=== PATIENT | female | born 1960 | race Caucasian/White ===

== ENCOUNTER → 2018-04-10 09:41 | Outpatient (CLI) | payer OTHER, MEDICAID, SELFPAY ==
[2018-04-10 11:18] LABS: Add Manual Diff / Slide Review NO; Basophils Percent Auto 0.8 % (0-2); Eosinophils Percent Auto 7.2 % (2-4); Hematocrit 41.7 % (36-46); Hemoglobin 14.3 g/dL (12.0-16.0); Lymphocytes Percent Auto 32.1 % (25-40); Mean Corpuscular HGB Conc 34.3 % (30-36); Mean Corpuscular Hemoglobin 30.6 PG (26-34); Mean Corpuscular Volume 89.3 fL (80-100); Monocytes Percent Auto 7.3 % (3-14); Neutrophils Absolute Auto 3200 /uL (3000-5900); Neutrophils Percent Auto 52.6 % (50-75); Platelet Count 293 X10^3/uL (150-400); Red Blood Cell Count 4.67 X10^6/uL (4.0-5.2); Red Cell Distribution Width 13.6 % (11.6-14.8); White Blood Cell Count 6.2 X10^3/uL (4.5-11.0)
[2018-04-10 11:33] LABS: Alanine Aminotransferase 43 IU/L (9-52); Albumin 4.5 g/dL (3.5-5.0); Albumin Globulin Ratio 1.6 (1.0-2.8); Alkaline Phosphatase 60 U/L (38-126); Aspartate Aminotransferase 34 IU/L (14-36); BUN Creatinine Ratio 36.7 (6-22); Bilirubin Total 0.4 mg/dL (0.2-1.3); Blood Urea Nitrogen 22 mg/dL (7-17); Calcium 9.3 mg/dL (8.4-10.2); Carbon Dioxide 28 mmol/L (22-32); Chloride 103 mmol/L (98-107); Cholesterol 175 mg/dL (140-199); Estimated Glomerular Filt Rate > 60.0 mL/min (>60); Globulin 2.9 g/dL (1.7-4.1); Glucose 86 mg/dL (70-100); HDL Cholesterol 42 mg/dL (40-60); HEMOLYSIS < 15 (0-50); LDL Cholesterol Calculated 102 mg/dL (<100); Potassium 4.1 mmol/L (3.4-5.1); Sodium 143 mmol/L (137-145); Total Protein 7.4 g/dL (6.3-8.2); Triglycerides 156 mg/dL (35-150)
[2018-04-10 12:46] LABS: TSH w/ Reflex to FT4 3.85 uIU/mL (0.47-4.68)
== END ==
PROVIDERS: PCP Family Medicine; Visit Provider Family Medicine
DX: Z13.220 Encounter for screening for lipoid disorders (principal)
CPT/HCPCS: 36415; 80053; 80061; 84443; 85025

== ENCOUNTER → 2018-04-17 11:04 | Outpatient (CLI) | payer OTHER, MEDICAID, SELFPAY ==
[2018-04-17 12:37] LABS: Free T4, Direct Thyroxine 0.92 ng/dL (0.78-2.19)
[2018-04-25 12:00] LABS: Thyroid Antibodies <1
== END ==
PROVIDERS: PCP Family Medicine; Visit Provider Family Medicine
DX: E03.9 Hypothyroidism, unspecified (principal)
CPT/HCPCS: 36415; 84439

== ENCOUNTER 2018-10-06 19:10 | Emergency (ER) | payer OTHER, MEDICAID, SELFPAY ==
[2018-10-06] VITALS (8 sets, daily range): BP systolic 136–224; BP diastolic 65–115; PULSE 55–70; RESP 10–18; TEMP 36.6; O2SAT 98–99; BMI 22.8
--- NOTE | 2018-10-06 19:37 | ED_ITS ---
HPI - Headache General Chief Complaint: Headache Stated Complaint: FAST HEART BEAT HEADACHE RT SIDE OF HEAD HIGH BLOO Time Seen by Provider: 10/06/18 19:36 Source: patient Mode of arrival: ambulatory Limitations: no limitations History of Present Illness HPI Narrative: Patient is a 57-year-old female here for evaluation of several years of lower extremity tingling and restlessness. She does have a history of fibromyalgia and thought that this was a flare for fibromyalgia. She is also here for a several days/weeks history of neck pain and upper arm pain. Again she that this is a flare of her fibromyalgia. She states over the past 4 days consistently going to bed with it at night waking up with it in the morning chest pressure. She states that today she was generally not feeling very well. She took her blood pressure and it was elevated. She does not have a history of high blood pressure. She states that she was evaluated for this in the past and was given a blood pressure log but has not taken her blood pressure since July. States that her normally her blood pressure is 1 20-140 systolic lead. She also is complaining of a right-sided headache. Does not know what exactly the started. Was not a sudden onset. Has not tried anything for her symptoms prior to arrival. Symptoms not worse with movement or palpation or breathing. Nothing makes it better. Related Data Home Medications Medication Instructions Recorded Confirmed alpha lipoic acid 200 mg capsule 400 mg PO DAILY cap 07/13/18 10/06/18 melatonin 1 mg tablet 2 mg PO BEDTIME PRN tab 08/30/18 10/06/18 Allergies Allergy/AdvReac Type Severity Reaction Status Date / Time No Known Drug Allergies Allergy Verified 08/30/18 15:43 Review of Systems Constitutional Reports fatigue, Denies fever(s), Reports headache(s), Reports malaise and Denies weakness Eyes Denies change in vision and Denies diplopia ENT Ears, Nose, Mouth, and Throat: Denies vertigo, Denies dizziness, Denies dry mouth, Reports headache(s), Denies disequilibrium, Denies sinus pressure and Reports sore throat Cardiovascular Reports chest pain, Denies lightheadedness and Denies dyspnea Respiratory Denies cough, Denies dyspnea and Denies wheezing Gastrointestinal Gastrointestinal: Denies abdominal pain, Denies nausea and Denies vomiting Genitourinary Denies dysuria Musculoskeletal Reports myalgias, Denies arthralgias, Reports stiffness and Reports tingling Integumentary/Breasts Denies lesions and Denies rash Neurologic Denies confusion, Denies vertigo, Denies dizziness, Reports headache(s), Denies focal weakness, Reports restless legs, Reports tingling, Reports paresthesias, Denies disequilibrium and Denies weakness Psychiatric Denies confusion Endocrine Reports fatigue Hematologic/Lymphatic Comments: Not on anticoagulation Allergic/Immunologic Denies wheezing PFSH Medical History Fibromyalgia (Chronic) Breast implant status (Chronic) PTSD (post-traumatic stress disorder) (Chronic) Surgical History No pertinent past surgical history (Acute) Family History Mother Tachycardia DVT (deep venous thrombosis) Varicose veins Social History marital status: Smoking Status: Former smoker Exam Initial Vital Signs Initial Vital Signs: Vital Signs Temperature 97.9 F 10/06/18 19:26 Pulse Rate 60 10/06/18 19:26 Respiratory Rate 18 10/06/18 19:26 Blood Pressure 224/102 H 10/06/18 19:26 Pulse Oximetry 99 10/06/18 19:26 Const General: cooperative, healthy appearing, comfortable, well developed, well groomed and No acute distress Orientation: alert, awake and oriented x3 HENMT Head: normal to inspection, normocephalic and atraumatic Ears: hearing grossly normal bilaterally Nose: external nose normal Mouth: oral mucosae normal Neck Neck: full ROM Lymphatic: No lymphadenopathy Resp Effort & Inspection: normal respiratory effort Auscultation: clear to auscultation bilaterally Cardio Rate: regular rate Rhythm: regular rhythm Pulses: radial pulses present GI Inspection: non-distended Palpation: soft Skin Lesions: no lesions Rashes: no rashes Neuro General: alert, awake and oriented x3 Cranial Nerves: CN's II-XI intact bilaterally Cognition: normal cognition Speech: speech normal Gait: normal gait Motor: muscle tone normal throughout Sensory Exam: no sensory deficits noted Extrem General: normal to inspection and capillary refill normal Psych Appearance: grossly normal and well kempt Scores HEART Score Heart Score history: Slightly Suspicious Heart Score EKG: Normal Heart Score Age: 45-64 years old Heart Score risk factors: No known risk factors Heart Score troponin: < or = to normal limit Heart Score Total: 1 Course Orders Ordered: ED Orders 10/06/18 19:37 EKG-12 Lead Stat 10/06/18 20:07 Basic Metabolic Panel Stat Complete Blood Count AUTO DIFF Stat Troponin I Stat 10/06/18 20:08 XR chest 1V Stat Thyroid Stimulating Hormone Stat Troponin I Stat Discontinued Medications Acetaminophen (Tylenol) 650 mg PO NOW ONE Stop: 10/06/18 20:17 Last Admin: 10/06/18 20:20 Dose: 650 mg Vital Signs - 8 hr 10/06/18 19:26 10/06/18 19:55 10/06/18 20:00 Temperature 97.9 F Pulse Rate 60 70 60 Respiratory Rate 18 14 14 Blood Pressure 224/102 H Blood Pressure [Left Arm] 179/100 H 187/80 H Pulse Oximetry 99 98 99 10/06/18 20:15 10/06/18 20:30 10/06/18 20:45 Temperature Pulse Rate 57 L 61 58 L Respiratory Rate 12 10 L 14 Blood Pressure Blood Pressure [Left Arm] 192/115 H 162/79 H 156/65 H Pulse Oximetry 98 98 10/06/18 21:00 Temperature Pulse Rate 59 L Respiratory Rate 14 Blood Pressure Blood Pressure [Left Arm] 136/87 Pulse Oximetry MDM - Headache Lab Data Attestation: I reviewed the patient's lab results. Result diagrams: 10/06/18 20:15 10/06/18 20:15 Lab Results 10/06/18 10/06/18 10/06/18 Range/Units 20:15 20:15 20:15 WBC 6.5 (4.5-11.0) X10^3/uL RBC 4.37 (4.0-5.2) X10^6/uL Hgb 13.1 (12.0-16.0) g/dL Hct 39.0 (36-46) % MCV 89.2 (80-100) fL MCH 29.9 (26-34) PG MCHC 33.5 (30-36) % RDW 13.1 (11.6-14.8) % Plt Count 412 H (150-400) X10^3/uL Neut % (Auto) 62.8 (50-75) % Lymph % (Auto) 26.8 (25-40) % [place] % (Auto) 7.2 (3-14) % Eos % (Auto) 2.4 (2-4) % Baso % (Auto) 0.8 (0-2) % Neut # (Auto) 4100 (6156-9453) /uL Sodium 146 H (137-145) mmol/L Potassium 3.9 (3.4-5.1) mmol/L Chloride 108 H (98-107) mmol/L Carbon Dioxide 25 (22-32) mmol/L BUN 17 (7-17) mg/dL Creatinine 0.50 L (0.52-1.04) mg/dL Estimated GFR > 60.0 (>60) mL/min BUN/Creatinine Ratio 34.0 H (6-22) Glucose 98 (70-100) mg/dL Calcium 9.4 (8.4-10.2) mg/dL Troponin I < 0.012 (0.01-0.034) ng/mL TSH 0.26 L (0.47-4.68) uIU/mL Imaging Data Chest x-ray: Radiologist's impression: PROCEDURE: XR CHEST 1V INDICATIONS: chest pain TECHNIQUE: One view of the chest was acquired. COMPARISON: None. FINDINGS: Surgical changes and devices: None. Lungs and pleura: No pleural effusions or pneumothorax. Lungs are clear. Mediastinum: Mediastinal contours appear normal. Heart size is normal. Bones and chest wall: No suspicious bony lesions. Overlying soft tissues appear unremarkable. IMPRESSION: No acute cardiopulmonary findings. Dictated by: Judith Cobian M.D. on 10/06/2018 at 20:30 Approved by: Judith Cobian M.D. on 10/06/2018 at 20:31 ECG Data Attestation: I personally reviewed and interpreted this ECG as follows: Prior ECG tracings: not available for review Interpretation: Sinus rhythm Ventricular rate is 66 Normal QRS Normal QTC Normal axis No ST T wave changes MDM Narrative Medical decision making narrative: Patient presents with her symptoms that have been going on for least 4 days. She was hypertensive upon arrival. Review of her home blood pressure measurements do show that she appears to be baseline in the 120s to 140 systolic. Patient's blood pressure did decrease to modestly here in the emergency department. No medications were given other than Tylenol. She states that her headache is much better. Patient's creatinine is unremarkable. No ischemic changes on the EKG. Troponin is negative greater than 6 hr after the onset of the symptoms. Has a normal neurologic exam. Doubt CVA. Patient clinically not in heart failure. I have no end-organ dysfunction findings on my workup today. Her TSH was low which is somewhat suspicious for hyperthyroidism. This could be the cause of many of her symptoms today. She states she has never been told that she has had thyroid problems. Her heart score is 1. Will hold on further workup today. I feel that admission for urgent chest pain workup is not needed. No long discussion with her and her regarding blood pressure and how to take it at home. We did discuss thyroid. She is going to contact her primary care doctor for a follow-up. She was given return precautions. She expressed understanding and agreement with plan. Discharge Plan Departure Patient Disposition: Home Clinical Impression: Headache, Hypertension Instructions: Hyperthyroidism, Essential Hypertension Activity Restrictions/Additional Instructions: I included information about hyperthyroidism in your discharge paperwork. I did not give the this diagnosis today however I wanted you to have information so that you could review it. You do need to follow-up with your primary care doctor for further workup. I would continue to take your blood pressure at home like we discussed. Return to the emergency department for any new or worsening symptoms Prescriptions: No Action alpha lipoic acid 200 mg capsule 400 mg PO DAILY RF: 0 melatonin 1 mg tablet 2 mg PO BEDTIME PRN (Reason: Insomnia) RF: 0
--- NOTE | 2018-10-06 20:08 | DI.RAD.S_ITS ---
PROCEDURE: XR CHEST 1V INDICATIONS: chest pain TECHNIQUE: One view of the chest was acquired. COMPARISON: None. FINDINGS: Surgical changes and devices: None. Lungs and pleura: No pleural effusions or pneumothorax. Lungs are clear. Mediastinum: Mediastinal contours appear normal. Heart size is normal. Bones and chest wall: No suspicious bony lesions. Overlying soft tissues appear unremarkable. IMPRESSION: No acute cardiopulmonary findings. Dictated by: Judith Cobian M.D. on 10/06/2018 at 20:30 Approved by: Judith Cobian M.D. on 10/06/2018 at 20:31
[2018-10-06] MEDS: ACETAMINOPHEN 325 MG TABLET 650 MG PO (20:20)
[2018-10-06 20:24] LABS: Add Manual Diff / Slide Review NO; Basophils Percent Auto 0.8 % (0-2); Eosinophils Percent Auto 2.4 % (2-4); Hemoglobin 13.1 g/dL (12.0-16.0); Lymphocytes Percent Auto 26.8 % (25-40); Mean Corpuscular HGB Conc 33.5 % (30-36); Mean Corpuscular Hemoglobin 29.9 PG (26-34); Mean Corpuscular Volume 89.2 fL (80-100); Monocytes Percent Auto 7.2 % (3-14); Neutrophils Absolute Auto 4100 /uL (3000-5900); Neutrophils Percent Auto 62.8 % (50-75); Platelet Count 412 X10^3/uL (150-400); Red Blood Cell Count 4.37 X10^6/uL (4.0-5.2); Red Cell Distribution Width 13.1 % (11.6-14.8); White Blood Cell Count 6.5 X10^3/uL (4.5-11.0)
[2018-10-06 20:35] LABS: Blood Urea Nitrogen 17 mg/dL (7-17); Calcium 9.4 mg/dL (8.4-10.2); Carbon Dioxide 25 mmol/L (22-32); Chloride 108 mmol/L (98-107); Estimated Glomerular Filt Rate > 60.0 mL/min (>60); Glucose 98 mg/dL (70-100); HEMOLYSIS < 15 (0-50); Potassium 3.9 mmol/L (3.4-5.1); Sodium 146 mmol/L (137-145)
[2018-10-06 20:47] LABS: Troponin I < 0.012 ng/mL (0.01-0.034)
[2018-10-06 21:17] LABS: Thyroid Stimulating Hormone 0.26 uIU/mL (0.47-4.68)
== END 2018-10-06 22:09 | disposition home or self-care (01) ==
PROVIDERS: Emergency Provider Emergency Medicine; PCP Family Medicine
DX: I10 Essential (primary) hypertension (principal); R51 Headache
CPT/HCPCS: 36591; 71045; 80048; 84443; 84484; 85025; 93005; 93010; 99283; 99285

== ENCOUNTER → 2018-10-18 17:01 | Outpatient (CLI) | payer OTHER, MEDICAID, SELFPAY ==
[2018-10-18 18:05] LABS: Free T3, Triiodothyronine Free 3.19 pg/mL (2.77-5.27); Free T4, Direct Thyroxine 0.88 ng/dL (0.78-2.19)
[2018-10-18 18:18] LABS: Thyroid Stimulating Hormone 0.08 uIU/mL (0.47-4.68)
[2018-10-20 13:56] LABS: Thyroid Peroxidase Antibodies 6 IU/mL (< 9)
[2018-10-20 15:43] LABS: Triiodothyronine T3 Total 91 ng/dL (76-181)
[2018-10-23 10:03] LABS: Triiodothyronine T3 Reverse 16 ng/dL (8-25)
== END ==
PROVIDERS: PCP Family Medicine; Visit Provider Family Medicine
DX: E05.90 Thyrotoxicosis, unspecified without thyrotoxic crisis or storm (principal); M79.7 Fibromyalgia
CPT/HCPCS: 36415; 84439; 84443; 84480; 84481; 84482; 86376

== ENCOUNTER → 2018-11-01 12:09 | Outpatient (CLI) | payer OTHER, MEDICAID, SELFPAY ==
[2018-11-01 13:46] LABS: Prolactin 5.1 ng/mL (3.0-18.6)
[2018-11-06 16:43] LABS: Arsenic 3 mcg/L (< 23); Lead, Blood 2 mcg/dL (< 5)
[2018-11-08 11:53] LABS: Mercury, Blood 3
== END ==
PROVIDERS: PCP Family Medicine; Visit Provider Family Medicine
DX: E03.9 Hypothyroidism, unspecified (principal); Z98.82 Breast implant status; R20.0 Anesthesia of skin; R20.2 Paresthesia of skin
CPT/HCPCS: 36415; 83825; 84146

== ENCOUNTER → 2018-11-08 12:15 | Outpatient (CLI) | payer OTHER, MEDICAID, SELFPAY ==
[2018-11-08 14:16] LABS: Thyroid Stimulating Hormone 1.51 uIU/mL (0.47-4.68)
== END ==
PROVIDERS: PCP Family Medicine; Visit Provider Family Medicine
DX: E03.9 Hypothyroidism, unspecified (principal)
CPT/HCPCS: 36415; 84443

== ENCOUNTER → 2018-11-10 16:35 | Outpatient (CLI) | payer OTHER, MEDICAID, SELFPAY ==
[2018-11-10 18:24] LABS: Vitamin B12 > 1000 pg/mL (239-931)
[2018-11-12 14:10] LABS: RPR Screen Nonreactive (Nonreactive)
[2018-11-15 21:30] LABS: Methylmalonic Acid 137 nmol/L (87-318)
== END ==
PROVIDERS: PCP Family Medicine; Visit Provider Family Medicine
DX: R20.9 Unspecified disturbances of skin sensation (principal)
CPT/HCPCS: 36415; 82607; 83090; 83921; 86592

== ENCOUNTER → 2018-12-09 12:29 | Outpatient (CLI) | payer OTHER, MEDICAID, SELFPAY ==
[2018-12-09 13:04] LABS: BUN Creatinine Ratio 26.3 (6-22); Blood Urea Nitrogen 21 mg/dL (7-17); Calcium 9.7 mg/dL (8.4-10.2); Carbon Dioxide 31 mmol/L (22-32); Chloride 101 mmol/L (98-107); Estimated Glomerular Filt Rate > 60.0 mL/min (>60); Glucose 92 mg/dL (70-100); HEMOLYSIS < 15 (0-50); Magnesium 2.1 mg/dL (1.6-2.3); Potassium 4.1 mmol/L (3.4-5.1); Sodium 141 mmol/L (137-145)
== END ==
PROVIDERS: PCP Family Medicine; Visit Provider Family Medicine
DX: R25.2 Cramp and spasm (principal)
CPT/HCPCS: 36415; 80048; 83735

== ENCOUNTER → 2018-12-15 13:24 | Outpatient (CLI) | payer OTHER, MEDICAID, SELFPAY ==
[2018-12-15 14:11] LABS: C-Reactive Protein Quant < 0.5 mg/dL (<1.0); Rheumatoid Factor < 8.6 IU/mL (<12.0)
[2018-12-19 11:51] LABS: CCP Antibody (IgG) < 16 Units (< 20)
[2018-12-20 16:18] LABS: ANA Screen NEGATIVE (Negative); DNA Antibody Crithidia IFA NEGATIVE (Negative); Rheumatoid Factor <14 IU/mL; Sjogren Antiboday SS-A <1.0 NEG AI (<1.0 NEGATIVE); Sjogren Antiboday SS-B <1.0 NEG AI (<1.0 NEGATIVE); Sm Antibody <1.0 NEG AI (<1.0 NEGATIVE); Sm/RNP Antibody <1.0 NEG AI (<1.0 NEGATIVE)
== END ==
PROVIDERS: PCP Family Medicine; Visit Provider Family Medicine
DX: R20.2 Paresthesia of skin (principal); R20.9 Unspecified disturbances of skin sensation
CPT/HCPCS: 36415; 82728; 83516; 86038; 86140; 86430

== ENCOUNTER → 2018-12-20 09:49 | Outpatient (CLI) | payer OTHER, MEDICAID, SELFPAY ==
--- NOTE | 2018-12-20 09:50 | DI.MRI.S_ITS ---
PROCEDURE: MR CERVICAL SPINE WO CON INDICATIONS: paresthesia, neck pain TECHNIQUE: Noncontrast sagittal T1 spin echo and T2 fast spin echo, sagittal STIR, foraminal oblique sagittal T2 fast spin echo, and axial gradient echo or T2 fast spin echo through the cervical spine. COMPARISON: None. FINDINGS: Image quality: Excellent. Alignment and Curvature: Trace retrolisthesis of C5 on C6. Bone Marrow: Degenerative endplate signal changes and spurring. Spinal Cord: Visualized spinal cord has normal size and signal. No cerebellar tonsillar herniation. Paraspinous Soft Tissues: No paravertebral masses. Prevertebral soft tissues are normal in thickness. C2-C3: Minimal bilateral foraminal narrowing. No central canal stenosis. C3-C4: Bilateral uncovertebral arthropathy and posterior intervening disc osteophyte complex, and bilateral facet disease. No central canal stenosis. No left foraminal narrowing. Mild right foraminal stenosis. C4-C5: Bilateral uncovertebral arthropathy and posterior intervening disc osteophyte complex, and mild bilateral facet disease. No central canal stenosis. Mild bilateral foraminal stenoses. C5-C6: Bilateral uncovertebral arthropathy and posterior intervening disc osteophyte complex, and facet arthropathy. No definite canal stenosis. Severe right foraminal narrowing. Mild left foraminal stenosis. C6-C7: No central canal narrowing. No foraminal stenosis. C7-T1: Normal appearance. IMPRESSION: Multilevel cervical spondylosis, diffuse bilateral facet arthropathy and trace retrolisthesis of C5 on C6. No high-grade canal stenosis. Severe right C5-6 foraminal stenosis. Mild bilateral foraminal narrowing at C4-C5 Dictated by: Dustin Ríos M.D. on 12/20/2018 at 12:34 Approved by: Dustin Ríos M.D. on 12/20/2018 at 12:39
== END ==
PROVIDERS: PCP Family Medicine; Visit Provider Family Medicine
DX: R20.2 Paresthesia of skin (principal); M54.2 Cervicalgia; M47.812 Spondylosis without myelopathy or radiculopathy, cervical region; M48.02 Spinal stenosis, cervical region; R53.1 Weakness
CPT/HCPCS: 72141

== ENCOUNTER → 2019-01-11 17:38 | Outpatient (CLI) | payer OTHER, MEDICAID, SELFPAY ==
[2019-01-11 19:04] LABS: Free T3, Triiodothyronine Free 3.33 pg/mL (2.77-5.27); Free T4, Direct Thyroxine 0.88 ng/dL (0.78-2.19)
[2019-01-11 19:17] LABS: Thyroid Stimulating Hormone 2.99 uIU/mL (0.47-4.68)
== END ==
PROVIDERS: PCP Family Medicine; Visit Provider Family Medicine
DX: E03.9 Hypothyroidism, unspecified (principal)
CPT/HCPCS: 36415; 84439; 84443; 84481

== ENCOUNTER → 2019-02-23 13:41 | Outpatient (CLI) | payer OTHER, SELFPAY ==
--- NOTE | 2019-02-23 | DI.MG.S_ITS ---
BILATERAL DIGITAL SCREENING MAMMOGRAM 3D/2D WITH CAD WITH AUGMENTATION: 02/23/2019 CLINICAL: Routine screening. Family history of breast cancer. Comparison is made to exams dated: 02/02/2018 mammogram, 11/23/2016 mammogram, and 10/06/2015 mammogram - [facility]. The tissue of both breasts is heterogeneously dense. This may lower the sensitivity of mammography. Current study was also evaluated with a Computer Aided Detection (CAD) system. Bilateral breast implants are intact. No significant masses, calcifications, or other findings are seen in either breast. There has been no significant interval change. IMPRESSION: NEGATIVE There is no mammographic evidence of malignancy. A 1 year screening mammogram is recommended. This exam was interpreted at Station ID: [id number]. NOTE: For mammograms, a report in lay terms will be sent to the patient. Approximately 15% of breast malignancies will not be visualized mammographically. In the management of a palpable breast mass, a negative mammogram must not discourage biopsy of a clinically suspicious lesion. Electronically Signed By: Paolo motley/ricco:02/23/2019 17:59:16 letter sent: Normal Exam ACR BI-RADS Category 1: Negative [id number]
== END ==
PROVIDERS: PCP Family Medicine; Visit Provider Family Medicine
DX: Z12.31 Encounter for screening mammogram for malignant neoplasm of breast (principal); Z80.3 Family history of malignant neoplasm of breast
CPT/HCPCS: 77063; 77067

== ENCOUNTER → 2019-03-08 12:56 | Outpatient (CLI) | payer OTHER, SELFPAY ==
--- NOTE | 2019-03-08 14:15 | DI.MRI.S_ITS ---
PROCEDURE: MR HEAD/BRAIN WO CON INDICATIONS: craniofacial pain TECHNIQUE: Non-contrast axial T1 spin echo, axial T2 fast spin echo, sagittal and axial FLAIR, coronal T2 fast spin echo, axial gradient echo, axial diffusion and ADC through the brain. COMPARISON: None. FINDINGS: Image quality: Excellent. CSF spaces: Ventricles appear symmetric in size and shape. Basal cisterns are patent. No extra-axial fluid collections. Brain: In this patient with this given history, scrutiny is given to the trigeminal nerves and Meckel's caves. To the limits of this standard protocol study performed without contrast, no abnormalities can be seen within these regions. No intracranial bleeds or mass effects. There is mild cerebral volume loss. There are mild periventricular and deep white matter chronic small vessel ischemic changes. Brainstem appears normal. Diffusion-weighted images show no acute ischemic insults. No chronic ischemic insults. Normal intravascular flow voids are present. Skull and face: Calvarial bone marrow is normal in signal. Orbits are normal. Sinuses: Sinuses and mastoids are clear. IMPRESSION: No imaging explanation is found for this patient's presenting symptoms. Mild brain parenchymal volume loss and chronic small vessel ischemic change. Dictated by: Robert Vogel M.D. on 03/08/2019 at 13:33 Approved by: Robert Vogel M.D. on 03/08/2019 at 13:35
== END ==
PROVIDERS: PCP Family Medicine; Visit Provider Family Medicine
DX: R51 Headache (principal)
CPT/HCPCS: 70551

== ENCOUNTER → 2019-04-04 14:05 | Outpatient (CLI) | payer OTHER, SELFPAY ==
[2019-04-04 15:47] LABS: Add Manual Diff / Slide Review NO; Basophils Absolute Auto 0 /uL (0-100); Basophils Percent Auto 0.9 % (0-2); Eosinophils Absolute Auto 100 /uL (0-450); Eosinophils Percent Auto 1.9 % (2-4); Hematocrit 39.3 % (36-46); Lymphocytes Absolute Auto 1500 /uL (1100-4500); Lymphocytes Percent Auto 31.8 % (25-40); Mean Corpuscular HGB Conc 33.1 % (30-36); Mean Corpuscular Hemoglobin 28.8 PG (26-34); Monocytes Absolute Auto 400 /uL (0-900); Monocytes Percent Auto 8.6 % (3-14); Neutrophils Absolute Auto 2800 /uL (1500-7000); Neutrophils Percent Auto 56.8 % (50-75); Platelet Count 535 X10^3/uL (150-400); Red Blood Cell Count 4.51 X10^6/uL (4.0-5.2); Red Cell Distribution Width 13.7 % (11.6-14.8); White Blood Cell Count 4.9 X10^3/uL (4.5-11.0)
[2019-04-04 16:08] LABS: Erythrocyte Sedimentation Rate 23 MM/HR (0-20)
[2019-04-04 17:10] LABS: Alanine Aminotransferase 69 IU/L (9-52); Albumin 4.7 g/dL (3.5-5.0); Albumin Globulin Ratio 1.8 (1.0-2.8); Alkaline Phosphatase 107 U/L (38-126); Aspartate Aminotransferase 35 IU/L (14-36); BUN Creatinine Ratio 23.3 (6-22); Bilirubin Total 0.3 mg/dL (0.2-1.3); Blood Urea Nitrogen 14 mg/dL (7-17); C-Reactive Protein Quant 0.6 mg/dL (<1.0); Calcium 10.1 mg/dL (8.4-10.2); Carbon Dioxide 31 mmol/L (22-32); Chloride 102 mmol/L (98-107); Estimated Glomerular Filt Rate > 60.0 mL/min (>60); Globulin 2.6 g/dL (1.7-4.1); Glucose 87 mg/dL (80-110); HEMOLYSIS < 15 (0-50); Potassium 4.6 mmol/L (3.4-5.1); Sodium 142 mmol/L (137-145); Total Protein 7.3 g/dL (6.3-8.2)
[2019-04-04 17:26] LABS: Vitamin D 25 Hydroxy (D3) 41.9 ng/mL (30.0-100.0)
[2019-04-04 17:39] LABS: TSH w/ Reflex to FT4 2.13 uIU/mL (0.47-4.68)
[2019-04-04 17:56] LABS: Vitamin B12 844 pg/mL (239-931)
== END ==
PROVIDERS: PCP Family Medicine; Visit Provider Family Medicine
DX: R51 Headache (principal); L29.9 Pruritus, unspecified; M79.2 Neuralgia and neuritis, unspecified; M79.7 Fibromyalgia
CPT/HCPCS: 36415; 80053; 82306; 82607; 84443; 85025; 85651; 86140

== ENCOUNTER → 2019-04-09 10:34 | Outpatient (CLI) | payer OTHER, SELFPAY ==
--- NOTE | 2019-04-09 10:35 | DI.US.S_ITS ---
PROCEDURE: US PELVIC COMPLETE INDICATIONS: PMB TECHNIQUE: Real-time scanning was performed of the pelvic organs, with image documentation. Additional endovaginal scanning was necessary due to incomplete visualization of the adnexal and endometrial structures by transabdominal scanning. COMPARISON: None. FINDINGS: Transabdominal scanning: Limited scanning through the kidneys shows no hydronephrosis. No pathologic free abdominal or pelvic fluid. Endovaginal scanning: Uterus: Uterus is normal in size at 2.8 x 4.1 x 6.3 cm. The endometrium measures 2.5 mm in combined thickness. Several punctate calcifications are incidentally noted within the endometrial lining. There is a 1.3 x 1.0 x 1.1 cm small right anterior centrum mural fibroid, requiring no followup. Ovaries: Right ovary measures 3.1 x 1.8 x 1.9 cm containing 2 simple cysts the largest of which measures up to 1.7 cm. The left ovary measures 2.9 x 1.2 x 1.5 cm. IMPRESSION: An endometrial mass lesion is not seen, source of this menopausal bleeding is not identified. The patient reportedly is postmenopausal 12 years. No ovarian mass is seen. Note is made of 2 small right ovarian cyst the largest of which measures 1.7 cm, and each appears simple in character. If unexplained postmenopausal bleeding persists endometrial biopsy may be warranted regardless the absence of an identifiable mass by ultrasound. Dictated by: Everette Hogan M.D. on 04/09/2019 at 16:04 Approved by: Everette Hogan M.D. on 04/09/2019 at 16:06
== END ==
PROVIDERS: PCP Family Medicine; Visit Provider Family Medicine
DX: N95.0 Postmenopausal bleeding (principal); N83.201 Unspecified ovarian cyst, right side
CPT/HCPCS: 76830; 76856

== ENCOUNTER → 2019-04-24 12:48 | Outpatient (CLI) | payer OTHER, SELFPAY ==
--- NOTE | 2019-04-24 12:50 | DI.MRI.S_ITS ---
PROCEDURE: MR LUMBAR SPINE WO CON INDICATIONS: sacral pain TECHNIQUE: Noncontrast sagittal T1 spin echo and T2 fast echo, sagittal STIR, axial T1 and T2 fast spin echo through the lumbar spine. In cases with scoliosis, additional coronal T2 fast spin echo may be performed. COMPARISON: [facility], , L-SPINE 2-3 VIEWS, 05/23/2013, 16:25. FINDINGS: Image quality: Excellent. Alignment and Curvature: 5 lumbar-type vertebral bodies by plain film. There is normal bony alignment. Bone Marrow: Marrow is of normal overall signal. No acute vertebral body compression fractures. Spinal Cord: Conus medullaris terminates at the mid L2 level. Visualized cord demonstrates normal signal and size. Paraspinous Soft Tissues: No paravertebral masses. L1-L2: Mild disc desiccation. Mild facet and ligamentum flavum hypertrophy. Mild canal stenosis. No foraminal stenosis. L2-L3: Mild facet and ligamentum flavum hypertrophy. Mild canal stenosis. No foraminal stenosis. L3-L4: Mild disc desiccation and diffuse disc bulge. Mild facet and ligament flavum hypertrophy. Mild canal stenosis. No foraminal stenosis. L4-L5: Mild disc desiccation. Mild diffuse disc bulge. Mild facet and ligamentum flavum hypertrophy. Mild canal stenosis. Mild foraminal stenosis bilaterally. L5-S1: Normal appearance. IMPRESSION: Multilevel degenerative disc and facet disease, as well ligamentum flavum hypertrophy, causing mild canal and foraminal stenoses. No neural impingement. Dictated by: Bella Eller M.D. on 04/24/2019 at 15:14 Approved by: Bella Eller M.D. on 04/24/2019 at 15:16
--- NOTE | 2019-04-24 12:50 | DI.MRI.S_ITS ---
PROCEDURE: MR THORACIC SPINE WO CON INDICATIONS: throacic pain TECHNIQUE: Noncontrast sagittal T1 spine echo and T2 fast spin echo, sagittal STIR, axial T1 and T2 fast spin echo through the thoracic spine. COMPARISON: None. FINDINGS: Image quality: Excellent. Alignment and Curvature: There is moderate diffuse thoracic kyphosis, and otherwise normal bony alignment. Bone Marrow: Marrow is of normal overall signal. No acute vertebral body compression fractures. Spinal Cord: Visualized spinal cord is normal in size and signal. Paraspinous Soft Tissues: No paravertebral masses. Disc space levels: Multilevel disc desiccation is present. At T6-T7, there is a left paracentral protrusion, causing minimal canal stenosis, and mild cord flattening. At T9-T10, there is a small right paracentral protrusion, causing minimal canal stenosis and minimal right cord flattening. At T10-T11, there is a small broad-based right paracentral protrusion, causing minimal canal stenosis and minimal cord flattening. IMPRESSION: 1. Diffuse thoracic kyphosis with superimposed disc disease, causing minimal canal stenosis, and minimal cord flattening at T6-T7, T9-T10, and T10-T11. Dictated by: Bella Eller M.D. on 04/24/2019 at 15:17 Approved by: Bella Eller M.D. on 04/24/2019 at 15:20
== END ==
PROVIDERS: PCP Family Medicine; Visit Provider Family Medicine
DX: M53.3 Sacrococcygeal disorders, not elsewhere classified (principal); M51.36 Other intervertebral disc degeneration, lumbar region; M48.061 Spinal stenosis, lumbar region without neurogenic claudication; M40.294 Other kyphosis, thoracic region; M51.24 Other intervertebral disc displacement, thoracic region
CPT/HCPCS: 72146; 72148

== ENCOUNTER 2019-06-04 12:05 | Day surgery (SDC) | payer OTHER, SELFPAY ==
[2019-05-24 07:45] VITALS: BMI 22.3
[2019-06-04] VITALS (9 sets, daily range): BP systolic 108–153; BP diastolic 57–86; PULSE 48–72; RESP 8–16; TEMP 36–36.9; O2SAT 95–100; BMI 21.2
--- NOTE | 2019-06-04 | PATH_ITS ---
[facility] Accession Number: [id number] . 01 Material submitted: . PART A: cervix - CERVICAL CONE (OPEN AT 12 O'CLOCK) PART B: endocervix - ENDOCERVICAL CURETTINGS PART C: endometrium - ENDOMETRIAL CURETTINGS . 02 Diagnosis: A. 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 Please see comment. . B. Endocervical, Curettage: Superficial fragments of [id number]. . C. Endometrium, Curettings: Superficial fragments of [id number]. [facility]06/07/2019 . 02 Comment: A. There are two foci suspicious for invasive adenocarcinoma in two consecutive blocks designated 6-9 o'clock and 9-12 o'clock which abut endocervical margin. The distance of these suspicious foci to the base of the adjacent glandular epithelum from which it appears to originate is less than 3 mm. The in-situ adenocarcinoma extends to endocervical margin three of four quadrants. Ectocervical margin is uninvolved. No lymphovascular invasion is identified. Squamous intraepithelial neoplasia is not identified. . As part of routine quality control engineer, this case was also reviewed by Dr. Rivera and Dr. Hardin, who agree with the diagnosis. Dr. Ahn gave preliminary results to Ankush in Dr. Marte' office on 06/07/19. . 02 Electronically signed: . Amanda Ahn MD, Pathologist NPI- [id number] . 01 Gross description: . A. Received in formalin, labeled with the patient's name and cervical cone (open at 12 o'clock), is a 2.4 cm in length by 1.4 cm in diameter cervical cone which is disrupted into two pieces. Due to the specimen being disrupted, orientation is presumed based upon gross features. The ectocervical mucosa is not definitively identified. The endocervical mucosa is mota-brown and granular. The endocervical margin is inked orange, and the ectocervical and stromal margins are inked blue. The specimen is radially sectioned and entirely submitted as follows: A1-A2 - 12 o'clock to 3 o'clock; A3-A4 - 3 o'clock to 6 o'clock; A5 - 6 o'clock to 9 o'clock; A6 - 9 o'clock to 12 o'clock. B. Received in formalin, labeled with the patient's name and endocervical curettings are multiple minute mota-brown soft tissue fragments measuring 0.4 x 0.2 x 0.1 cm in aggregate. The specimen is entirely submitted in one cassette. C. Received in formalin, labeled with the patient's name and endometrial curettings, are multiple red-brown soft tissue fragments measuring 1.1 x 0.4 x 0.2 cm in aggregate. The specimen is entirely submitted in one cassette. (LORA:[id number]) /MRV . 02 Pathologist provided ICD-10: D06.0 . 02 CPT . 480249, [id number], [id number] Performed at: 01 [facility] [address] [id number] MD Andrea Phan MD Phone: [phone] Performed at: 02 [facility] [address] [place] [id number] MD Amanda Ahn MD Phone: [phone]
[2019-06-04] MEDS: LACTATED RINGERS 1,000 ML 100 ML IV (12:22)
--- NOTE | 2019-06-04 12:41 | PM.PREOP ---
Pre-operative Note Interval Note History & Physical reviewed/Exam performed by Physician: Yes Changes to H&P: No ASA Class (for procedural sedation): I
[2019-06-04] MEDS: CEFOTETAN 2 GM/50 ML PIGGYBACK IV (13:00)
--- NOTE | 2019-06-04 13:17 | SUR.OPER ---
Lithotomy on padded OR bed, head on pillow, arms secured on padded arm boards at <90 degrees abduction. Legs secured in padded yellow fins stirrups.
[2019-06-04] MEDS: BUPIVACAINE 0.5% W/ EPI (PF) VIAL 30 ML INJ (13:22)
--- NOTE | 2019-06-04 13:45 | PM.GYNOP.1 ---
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 Post-op diagnosis: same Procedure: Procedures Operation Date: 06/04/19 13:00 Actual Procedures Side Surgeon p Cervical conization, dilation and currjdge Bartolo Marte MD Indications: Adenocarcinoma of the endocervix on ECC Surgeon: Bartolo Marte Anesthesia Type: General Operative Notes Findings: Normal nulliparous appearing cervix normal size uterus Closure Type: primary Specimen(s): endometrial curettings, uterine contents and other (Cervical conization specimen opened at 12:00 p.m.) Estimated blood loss (mL): 50 Blood products transfused: none Procedure in detail: The patient was placed supine upon the operating table. She was then placed in the dorsal lithotomy position. Patient was draped and prepped in the usual fashion. A posterior weighted retractor was set in place. Angle sutures of 1. Chromic suture were then placed and held. The cervix was injected with 0.5% Marcaine and 1 to [id number] epinephrine.. Sharp knife incision was then made circumferentially progressively. The anterior and posterior lips of the cervix were then grasped and progressive incision was then made to the top of the endocervix. The endocervix was amputated at this portion. Specimen was opened at 12:00 p.m. and sent for pathologic exam. An ECC was performed and the specimen was sent separately. An endometrial curetting was performed and this specimen was sent separately. There was minimal amounts of tissue on both of the specimens. 4 quadrant stermdorf sutures of 1. Chromic suture were then placed. A circumferential baseball type whipstitch was then used on the remainder of the cervix. At the end of the procedure there was no bleeding. The posterior weighted retractor was removed. The patient was taken to the recovery room in satisfactory condition. Complications: none Post-operative Condition: stable Disposition: PACU Plan for aftercare: Routine aftercare
--- NOTE | 2019-06-04 13:49 | PM.DS.1 ---
History of Present Illness Date Patient Seen: 06/04/19 Time Patient Seen: 13:50 Chief complaint: [id number] Narrative: The patient is a 58-year-old with abnormal Pap smear showing atypical glandular cells. Specimen was positive HPV. This combination carries a 45% chance of FAITH 3/5 years. An ECC was performed in the office. DC returned as adenocarcinoma in situ. The patient was scheduled for cervical conization. Discharge Providers Discharge Date: 06/04/19 Primary care physician: Salma Ibarra DO Discharge provider: Bartolo Marte MD Summary Discharge Diagnosis: Adenocarcinoma of the endocervix Hospital Course: Patient was admitted for elective cervical conization ECC and endometrial sampling. This was performed without difficulty. Specimens were sent for pathologic diagnosis. Status at Discharge Cognitive/behavioral status at discharge: oriented Functional status at discharge: independent ambulation Overall status at discharge: patient is progressing back to baseline Time Spent with Patient Less than 30 minutes Exam Vital Signs (past 8 hours): - 06/04/19 12:22 Temperature 98.4 F Pulse Rate 72 Respiratory Rate 16 Blood Pressure 153/86 H Pulse Oximetry 100 Oxygen Delivery Method Room Air Narrative Exam Narrative: No vaginal bleeding Discharge Plan Discharge Plan Patient Disposition: Home Discharge Med Rec/Prescriptions Prescriptions: New oxycodone-acetaminophen [Percocet] 5-325 mg tablet 1 tab PO Q4-6H PRN (Reason: pain) Qty: 14 RF: 0 Continued gabapentin 300 mg capsule 300 mg PO TID Qty: 120 RF: 4 cyclobenzaprine 5 mg tablet 5 mg PO TID PRN (Reason: muscle spasm) Qty: 30 RF: 0 Hold Instructions: None melatonin 1 mg tablet 2 mg PO BEDTIME PRN (Reason: Insomnia) RF: 0 powdered magnesium PO PRN (Reason: muscle relaxer) RF: 0 zolpidem 5 mg tablet 2.5 mg PO BEDTIME PRN (Reason: Insomnia) RF: 0 Follow up/Referrals: Salma Ibarra DO [Primary Care Provider] - Discharge Orders: Discharge (Now); Ordered 06/04/19 Ordered By: Bartolo Marte Provider Discharge Instructions Diet: Diet as Tolerated Activity: Routine activity Nothing in the vagina for least six weeks Skin/Wound/Dressing Care Report to your healthcare provider any signs of infection, such as:: chills, fever, unusual drainage and unusual redness Visit Report/Discharge Packet Instructions: DI for Cervical Conization Stand Alone Forms: Surgery Discharge Discharge Data Primary Care Provider: Salma Ibarra Attending Provider: Bartolo Marte
[2019-06-04] MEDS: ACETAMINOPHEN 325 MG TABLET PO (14:43)
== END 2019-06-04 15:15 | disposition home or self-care (01) ==
LOC: OR 12:07
PROVIDERS: PCP Family Medicine
PROC: 0UBC7ZZ Excision of Cervix, Via Natural or Artificial Opening (ICD-10-PCS; CPT 57520; principal; 2019-06-04 13:00)
DX: D06.0 Carcinoma in situ of endocervix (principal); M79.7 Fibromyalgia; Z87.891 Personal history of nicotine dependence
CPT/HCPCS: 57520; J1100; J1200; J1885; J2405; J2704; J3010

== ENCOUNTER → 2019-06-12 11:32 | Outpatient (CLI) | payer OTHER, SELFPAY ==
--- NOTE | 2019-06-12 13:45 | DI.CT.S_ITS ---
PROCEDURE: CT CHEST ABD PEL W CON INDICATIONS: Newly diagnosed with invasive adenocarcinoma of cervix TECHNIQUE: After the administration of oral and intravenous contrast, 5 mm thick sections acquired from the lung apices to the symphysis. 5 mm coronal and sagittal reformats were performed, with additional 7 mm coronal MIP reformats through the lungs. For radiation dose reduction, the following was used: automated exposure control, adjustment of mA and/or kV according to patient size. COMPARISON: None. FINDINGS: Image quality: Excellent. CHEST: Lungs and pleura: No acute consolidation. No pleural effusions or pneumothorax. Central and peripheral airways appear patent and normal in caliber. Mediastinum: Heart size is normal. No pericardial effusion. No mediastinal or hilar adenopathy by size criteria. Thoracic aorta and central pulmonary arteries are normal in size. Esophagus is normal in caliber. No hiatal hernia. Chest wall: No axillary or supraclavicular adenopathy by size criteria. Thyroid gland unremarkable. Bilateral breast prostheses. ABDOMEN: Solid organs: Liver is normal in size and enhancement. Gallbladder normal. Biliary system is non dilated. Pancreas enhances normally. Spleen is normal in size and enhancement. No adrenal nodules. Kidneys demonstrate normal size and enhancement, without hydronephrosis. Presumed subcentimeter left renal cyst although technically too small to characterize. Peritoneum and bowel: Bowel loops demonstrate normal wall thickness and caliber. No free fluid or air. Nodes and vessels: No retroperitoneal or mesenteric adenopathy by size criteria. Aorta and inferior vena cava are normal in size. Miscellaneous: No ventral hernias. PELVIS: Genitourinary: Bladder wall thickness is normal. Miscellaneous: No inguinal hernias or adenopathy. Bones: No suspicious bony lesions. No vertebral body compression fractures. IMPRESSION: No specific evidence of distant metastatic disease. Dictated by: Dustin Ríos M.D. on 06/12/2019 at 14:58 Approved by: Dustin Ríos M.D. on 06/12/2019 at 15:03
== END ==
PROVIDERS: Family Provider Obstetrics & Gynecology Gynecologic Oncology; PCP Family Medicine
DX: C53.0 Malignant neoplasm of endocervix (principal); C53.9 Malignant neoplasm of cervix uteri, unspecified; M79.7 Fibromyalgia; Z78.0 Asymptomatic menopausal state
CPT/HCPCS: 36415; 71260; 74177; 80053; Q9967

== ENCOUNTER → 2019-06-12 11:37 | Outpatient (CLI) | payer OTHER, SELFPAY ==
[2019-06-12 13:07] LABS: Alanine Aminotransferase 44 IU/L (9-52); Albumin 4.7 g/dL (3.5-5.0); Albumin Globulin Ratio 1.9 (1.0-2.8); Alkaline Phosphatase 67 U/L (38-126); Aspartate Aminotransferase 29 IU/L (14-36); BUN Creatinine Ratio 21.7 (6-22); Bilirubin Total 0.4 mg/dL (0.2-1.3); Blood Urea Nitrogen 13 mg/dL (7-17); Calcium 10.4 mg/dL (8.4-10.2); Carbon Dioxide 32 mmol/L (22-32); Chloride 99 mmol/L (98-107); Estimated Glomerular Filt Rate > 60.0 mL/min (>60); Globulin 2.5 g/dL (1.7-4.1); Glucose 81 mg/dL (80-110); HEMOLYSIS < 15 (0-50); Potassium 4.5 mmol/L (3.4-5.1); Sodium 141 mmol/L (137-145); Total Protein 7.2 g/dL (6.3-8.2)
== END ==
PROVIDERS: Family Provider Obstetrics & Gynecology Gynecologic Oncology; PCP Family Medicine
DX: M79.7 Fibromyalgia (principal); Z78.0 Asymptomatic menopausal state
CPT/HCPCS: 36415; 80053

== ENCOUNTER → 2019-08-21 15:46 | Outpatient (CLI) | payer OTHER, SELFPAY ==
[2019-08-21 16:05] LABS: Bacteria Urine None Seen; RBC Urine None Seen (0-5/HPF); WBC Urine None Seen (0-5/HPF)
[2019-08-21 16:53] LABS: Appearance Urine UA CLEAR; Bilirubin Urine UA NEGATIVE (NEGATIVE); Color Urine UA YELLOW; Glucose Urine UA NEGATIVE (Negative); Ketones Urine UA NEGATIVE (NEGATIVE); Leukocyte Esterase Urine UA NEGATIVE (NEGATIVE); Nitrite Urine UA NEGATIVE (Negative); Occult Blood Urine UA NEGATIVE (Negative); Protein Urine UA NEGATIVE (Negative); Specific Gravity Urine UA <=1.005 (1.000-1.035); Urobilinogen Urine UA 0.2 E.U./dL (0.2)
[2019-08-21 16:59] LABS: pH Urine UA 6.5 (4.5-8.0)
[2019-08-21 17:08] LABS: Culture Indicated Urine Cult Not Indicated
== END ==
PROVIDERS: Family Provider Family Medicine; PCP Family Medicine; Visit Provider Obstetrics & Gynecology Gynecologic Oncology
DX: R30.9 Painful micturition, unspecified (principal); N39.44 Nocturnal enuresis
CPT/HCPCS: 81001

== ENCOUNTER → 2019-08-22 09:36 | Outpatient (CLI) | payer OTHER, SELFPAY ==
[2019-08-22 10:12] LABS: Blood Urea Nitrogen 12 mg/dL (7-17); Estimated Glomerular Filt Rate > 60.0 mL/min (>60)
--- NOTE | 2019-08-22 10:48 | DI.CT.S_ITS ---
PROCEDURE: CT ABDOMEN PELVIS W CON INDICATIONS: Acquired absence of both cervix and uterus TECHNIQUE: After the administration of oral and intravenous contrast, 5 mm thick sections acquired from the diaphragms to the symphysis. 5 mm thick coronal and sagittal reformats were performed. For radiation dose reduction, the following was used: automated exposure control, adjustment of mA and/or kV according to patient size. COMPARISON: [facility], CT, CT CHEST ABD PEL W CON, 06/12/2019, 13:14. FINDINGS: Image quality: Excellent. ABDOMEN: Lung bases: Lung bases are clear. Heart size is normal. Bilateral breast implants are present. Solid organs: Liver is normal in size and enhancement. Gallbladder is unremarkable. Biliary system is non-dilated. Pancreas enhances normally. Spleen is normal in size and enhancement. No adrenal nodules. Kidneys are normal in size and enhancement, without hydronephrosis. Stable subcentimeter partially exophytic left renal hypodensity likely representing a cyst. Peritoneum and bowel: Stomach, small bowel, and colon loops are normal in caliber and wall thickness. No free air. There is a small-moderate amount of free fluid identified in the lower abdomen and pelvis. No organized fluid collections identified. Normal appendix. Nodes and vessels: No retroperitoneal or mesenteric adenopathy. Scattered atherosclerotic calcifications of the abdominal aorta and iliac vessels without aneurysmal dilatation. Miscellaneous: No ventral hernias. PELVIS: Genitourinary: Bladder wall thickness is normal. There are postoperative changes from total hysterectomy and likely bilateral oophorectomies. Miscellaneous: No inguinal hernias or adenopathy. Soft tissue stranding and mild skin thickening of the lower pelvis likely from recent surgical procedure. No organized fluid collection seen in the adjacent subcutaneous soft tissues. Bones: No suspicious bony lesions. No vertebral body compression fractures. IMPRESSION: 1. Interval postsurgical changes from total hysterectomy and likely bilateral oophorectomies. 2. Small-moderate amount of lower abdominal and pelvic free fluid. Otherwise, no CT evidence for metastatic disease. 3. No acute abnormalities identified in the abdomen or pelvis. Dictated by: Paolo Lomas M.D. on 08/22/2019 at 16:41 Approved by: Paolo Lomas M.D. on 08/22/2019 at 16:52
== END ==
LOC: CT 09:36 → LAB 09:42
PROVIDERS: Family Provider Family Medicine; PCP Family Medicine; Visit Provider Obstetrics & Gynecology Gynecologic Oncology
DX: I89.8 Other specified noninfective disorders of lymphatic vessels and lymph nodes (principal); Z90.710 Acquired absence of both cervix and uterus
CPT/HCPCS: 36415; 74177; 82565; 84520; Q9967

== ENCOUNTER → 2019-08-27 13:20 | Outpatient (CLI) | payer OTHER, SELFPAY ==
--- NOTE | 2019-08-27 | DI.CT.S_ITS ---
PROCEDURE: CT ABDOMEN PELVIS WO/W CON INDICATIONS: Other ascites TECHNIQUE: Optional 5 mm thick noncontrast images acquired from the diaphragm to the symphysis pubis. After the administration of intravenous contrast, 5 mm thick images acquired from the diaphragm to the symphysis pubis after a 10-minute delay. 2 mm thick coronal and sagittal reformats were then performed of the kidneys and ureters. For radiation dose reduction, the following was used: automated exposure control, adjustment of mA and/or kV according to patient size. COMPARISON: [facility], CT, CT CHEST ABD PEL W CON, 06/12/2019, 13:14. [facility], CT, CT ABDOMEN PELVIS W CON, 08/22/2019, 10:56. FINDINGS: Image quality: Excellent. Lung bases: Lung bases are clear. Heart size is normal. Bilateral breast prostheses Urinary system: Both kidneys are normal in size without hydronephrosis. No definite right nephrolithiasis. Possible punctate left nephrolithiasis without evidence of urinary obstruction. No perinephric fat stranding. There is normal bilateral renal enhancement. Renal calyces appear normal in morphology when filled with contrast. Opacified portions of both ureters demonstrate normal caliber. The distal ureters are not well contrast opacified, despite multiple attempts, although there is minimal contrast seen within the distal right ureter on image 30 series 2 as well as within the distal left ureter, image 73 series 2. No evidence of abscess. No evidence of extraluminal contrast material Bladder wall thickness is normal. No calcified bladder stones. Other solid organs: Liver is normal in size and enhancement. Gallbladder unremarkable although contracted. Biliary system is non dilated. Pancreas enhances normally. Spleen is normal in size and enhancement. No adrenal nodules. Peritoneum and bowel: Bowel loops demonstrate normal wall thickness and caliber. No free fluid or air. Appendix normal Nodes and vessels: No retroperitoneal or mesenteric adenopathy by size criteria. Aorta and inferior vena cava are normal in size. Abdominal wall: No ventral hernias. Pelvis: Trace scattered pelvic fluid. Numerous pelvic surgical clips. No adenopathy. Small fat containing left inguinal hernia. Anterior abdominal pelvic subcutaneous stranding presumably from recent surgery. Bones: No suspicious bony lesions. No vertebral body compression fractures. IMPRESSION: The distal-most ureters were not well contrast opacified in particular on the right, despite multiple best attempts. No evidence of hydronephrosis or hydroureter No evidence of abscess. No free air. Minimal scattered pelvic ascites which appears decreased since the prior study. Punctate nonobstructive left renal calculi. Dictated by: Dustin Ríos M.D. on 08/27/2019 at 14:25 Approved by: Dustin Ríos M.D. on 08/27/2019 at 14:37
== END ==
PROVIDERS: Family Provider Family Medicine; PCP Family Medicine; Visit Provider Obstetrics & Gynecology Gynecologic Oncology
DX: R18.8 Other ascites (principal); N20.0 Calculus of kidney; K40.90 Unilateral inguinal hernia, without obstruction or gangrene, not specified as recurrent
CPT/HCPCS: 74178; Q9967

== ENCOUNTER → 2020-08-18 10:14 | Outpatient (CLI) | payer OTHER, SELFPAY ==
[2020-08-18 11:11] LABS: Add Manual Diff / Slide Review NO; Basophils Absolute Auto 0 /uL (0-100); Basophils Percent Auto 0.8 % (0-2); Eosinophils Absolute Auto 200 /uL (0-450); Eosinophils Percent Auto 3.4 % (2-4); Hematocrit 38.9 % (36-46); Lymphocytes Absolute Auto 1500 /uL (1100-4500); Lymphocytes Percent Auto 30.7 % (25-40); Mean Corpuscular HGB Conc 33.5 % (30-36); Mean Corpuscular Hemoglobin 30.4 PG (26-34); Mean Corpuscular Volume 90.6 fL (80-100); Monocytes Absolute Auto 400 /uL (0-900); Monocytes Percent Auto 7.5 % (3-14); Neutrophils Absolute Auto 2800 /uL (1500-7000); Neutrophils Percent Auto 57.6 % (50-75); Platelet Count 289 X10^3/uL (150-400); Red Blood Cell Count 4.29 X10^6/uL (4.0-5.2); Red Cell Distribution Width 13.1 % (11.6-14.8); White Blood Cell Count 4.9 X10^3/uL (4.5-11.0)
[2020-08-18 11:28] LABS: Alanine Aminotransferase 26 IU/L (<35); Albumin 4.4 g/dL (3.5-5.0); Albumin Globulin Ratio 1.6 (1.0-2.8); Alkaline Phosphatase 60 U/L (38-126); Aspartate Aminotransferase 31 IU/L (14-36); BUN Creatinine Ratio 23.8 (6-22); Bilirubin Total 0.5 mg/dL (0.2-1.3); Blood Urea Nitrogen 15 mg/dL (7-17); Calcium 9.2 mg/dL (8.4-10.2); Carbon Dioxide 32 mmol/L (22-32); Chloride 103 mmol/L (98-107); Cholesterol 194 mg/dL (140-199); Estimated Glomerular Filt Rate > 60.0 mL/min (>60); Globulin 2.7 g/dL (1.7-4.1); Glucose 92 mg/dL (80-110); HDL Cholesterol 43 mg/dL (40-60); HEMOLYSIS < 15 (0-50); LDL Cholesterol Calculated 122 mg/dL (<100); Potassium 3.9 mmol/L (3.4-5.1); Sodium 140 mmol/L (137-145); Total Protein 7.1 g/dL (6.3-8.2); Triglycerides 146 mg/dL (35-150)
== END ==
PROVIDERS: Family Provider Family Medicine; PCP Family Medicine; Referring Provider Family Medicine; Visit Provider Family Medicine
DX: E03.9 Hypothyroidism, unspecified (principal); F41.9 Anxiety disorder, unspecified; G47.00 Insomnia, unspecified; I10 Essential (primary) hypertension; R45.89 Other symptoms and signs involving emotional state; Z01.89 Encounter for other specified special examinations
CPT/HCPCS: 36415; 80053; 80061; 84443; 85025

== ENCOUNTER → 2020-08-28 16:31 | Outpatient (CLI) | payer OTHER, SELFPAY ==
[2020-08-28 18:12] LABS: Progesterone, Total 0.19 ng/mL
[2020-08-29 06:09] LABS: Sex Hormone Binding Globulin 28.6 nmol/L (17.3-125.0)
[2020-09-02 07:17] LABS: Percent Free Testosterone 3.34 % (0.50-2.80); Testosterone Free 0.18 ng/dL (0.10-0.85); Testosterone Total 5.4 ng/dL (7.0-40.0)
[2020-09-09 13:14] LABS: Estradiol <5.0 pg/mL (.); Estriol,Serum <0.1 ng/mL (.); Estrone,Serum 57 pg/mL (.)
== END ==
PROVIDERS: Family Provider Family Medicine; PCP Family Medicine; Referring Provider Family Medicine; Visit Provider Family Medicine
DX: C80.1 Malignant (primary) neoplasm, unspecified (principal); R61 Generalized hyperhidrosis; Z90.710 Acquired absence of both cervix and uterus
CPT/HCPCS: 36415; 82670; 82677; 82679; 83001; 84144; 84270; 84402; 84403

== ENCOUNTER → 2021-05-08 10:14 | Outpatient (CLI) | payer OTHER, SELFPAY ==
--- NOTE | 2021-05-08 | DI.MG.S_ITS ---
BILATERAL DIGITAL SCREENING MAMMOGRAM 3D/2D WITH CAD: 05/08/2021 CLINICAL: Routine screening. Family history of breast cancer. Comparison is made to exams dated: 02/23/2019 mammogram, 02/02/2018 mammogram, and 11/23/2016 mammogram - [facility]. The tissue of both breasts is heterogeneously dense. This may lower the sensitivity of mammography. Current study was also evaluated with a Computer Aided Detection (CAD) system. There are benign post operative findings in both breasts. No significant masses, calcifications, or other findings are seen in either breast. There has been no significant interval change. IMPRESSION: BENIGN There is no mammographic evidence of malignancy. A 1 year screening mammogram is recommended. This exam was interpreted at Station ID: [id number]. NOTE: For mammograms, a report in lay terms will be sent to the patient. Approximately 15% of breast malignancies will not be visualized mammographically. In the management of a palpable breast mass, a negative mammogram must not discourage biopsy of a clinically suspicious lesion. Electronically Signed By: Andrea mahan/ricco:05/08/2021 11:08:22 letter sent: Normal Exam ACR BI-RADS Category 2: Benign Finding(s) [id number]
== END ==
PROVIDERS: Family Provider Family Medicine; PCP Family Medicine; Referring Provider Family Medicine; Visit Provider Family Medicine
DX: Z12.31 Encounter for screening mammogram for malignant neoplasm of breast (principal); Z80.3 Family history of malignant neoplasm of breast
CPT/HCPCS: 77063; 77067

== ENCOUNTER → 2021-08-28 10:13 | Outpatient (CLI) | payer OTHER, SELFPAY ==
[2021-08-28 10:47] LABS: Hematocrit 40.3 % (36-46); Hemoglobin 13.3 g/dL (12.0-16.0); Mean Corpuscular HGB Conc 32.9 % (30-36); Mean Corpuscular Hemoglobin 29.4 PG (26-34); Mean Corpuscular Volume 89.3 fL (80-100); Platelet Count 392 X10^3/uL (150-400); Red Blood Cell Count 4.51 X10^6/uL (4.0-5.2); Red Cell Distribution Width 13.1 % (11.6-14.8); White Blood Cell Count 5.9 X10^3/uL (4.5-11.0)
[2021-08-28 11:13] LABS: Neutrophils Absolute Manual 3599 /uL (3000-5900); RBC Morphology Normal Morphology; Total Cells Counted 100
[2021-08-28 11:16] LABS: Alanine Aminotransferase 23 IU/L (<35); Albumin 4.7 g/dL (3.5-5.0); Alkaline Phosphatase 54 U/L (38-126); Aspartate Aminotransferase 30 IU/L (14-36); BUN Creatinine Ratio 29.2 (6-22); Bilirubin Total 0.4 mg/dL (0.2-1.3); Blood Urea Nitrogen 19 mg/dL (7-17); Calcium 9.7 mg/dL (8.4-10.2); Carbon Dioxide 30 mmol/L (22-32); Chloride 103 mmol/L (98-107); Cholesterol 174 mg/dL (140-199); Estimated Glomerular Filt Rate > 60.0 mL/min (>60); Globulin 2.3 g/dL (1.7-4.1); Glucose 103 mg/dL (80-110); HDL Cholesterol 55 mg/dL (40-60); HEMOLYSIS < 15 (0-50); LDL Cholesterol Calculated 101 mg/dL (<100); Potassium 4.2 mmol/L (3.4-5.1); Sodium 142 mmol/L (137-145); Triglycerides 92 mg/dL (35-150); Uric Acid 5.7 mg/dL (2.5-6.2)
[2021-08-28 11:43] LABS: TSH w/ Reflex to FT4 1.41 uIU/mL (0.47-4.68)
[2021-08-28 13:16] LABS: Urine N gonorrhoeae NOT DETECTED
[2021-08-28 13:17] LABS: Urine Chlamydia NOT DETECTED
[2021-08-28 16:31] LABS: HIV 1 & 2 Ab/Ag 4th Gen Combo NEGATIVE (NEGATIVE)
[2021-08-29 08:11] LABS: HBsAg Screen Negative (Negative); Hepatitis A Antibody IgM Negative (Negative); Hepatitis B Core Antibody IgM Negative (Negative); Hepatitis C Antibody <0.1 s/co ratio (0.0-0.9); RPR Screen Non Reactive (Non Reactive)
== END ==
PROVIDERS: Family Provider Family Medicine; PCP Family Medicine; Referring Provider Family Medicine; Visit Provider Family Medicine
DX: C84.00 Mycosis fungoides, unspecified site (principal); R61 Generalized hyperhidrosis; Z78.0 Asymptomatic menopausal state; E03.9 Hypothyroidism, unspecified
CPT/HCPCS: 36415; 80053; 80061; 80074; 84443; 84550; 85025; 86592; 87389; 87491; 87591

== ENCOUNTER → 2021-10-28 17:26 | Outpatient (CLI) | payer OTHER, SELFPAY ==
[2021-10-28 18:07] LABS: Add Manual Diff / Slide Review NO; Basophils Absolute Auto 100 /uL (0-100); Basophils Percent Auto 0.9 % (0-2); Eosinophils Absolute Auto 200 /uL (0-450); Eosinophils Percent Auto 2.7 % (2-4); Hematocrit 42.8 % (36-46); Hemoglobin 14.3 g/dL (12.0-16.0); Lymphocytes Absolute Auto 1900 /uL (1100-4500); Lymphocytes Percent Auto 29.5 % (25-40); Mean Corpuscular HGB Conc 33.4 % (30-36); Mean Corpuscular Hemoglobin 29.4 PG (26-34); Monocytes Absolute Auto 500 /uL (0-900); Monocytes Percent Auto 7.9 % (3-14); Neutrophils Absolute Auto 3700 /uL (1500-7000); Platelet Count 350 X10^3/uL (150-400); Red Blood Cell Count 4.86 X10^6/uL (4.0-5.2); Red Cell Distribution Width 13.4 % (11.6-14.8); White Blood Cell Count 6.3 X10^3/uL (4.5-11.0)
[2021-10-28 18:18] LABS: HEMOLYSIS < 15 (0-50); Iron 135 ug/dL (37-170)
[2021-10-28 18:29] LABS: Percent Iron Saturation 38 % (15-50); Total Iron Binding Capacity 353 ug/dL (265-497); Transferrin 277 mg/dL (206-381)
[2021-10-28 18:54] LABS: Ferritin 190 ng/mL (11-264)
== END ==
PROVIDERS: Family Provider Family Medicine; PCP Family Medicine; Referring Provider Family Medicine; Visit Provider Family Medicine
DX: C84.00 Mycosis fungoides, unspecified site (principal); Z83.49 Family history of other endocrine, nutritional and metabolic diseases
CPT/HCPCS: 36415; 82728; 83540; 83550; 85025

== ENCOUNTER → 2022-10-05 14:21 | Outpatient (CLI) | payer OTHER, MEDICAID, SELFPAY ==
--- NOTE | 2022-10-05 14:22 | DI.MG.S_ITS ---
BILATERAL DIGITAL SCREENING MAMMOGRAM 3D/2D WITH CAD: 10/05/2022 CLINICAL: Routine screening. Family history of breast cancer. Comparison is made to exams dated: 05/08/2021 mammogram, 02/23/2019 mammogram, and 02/02/2018 mammogram - [facility]. Both breasts are heterogeneously dense, which may obscure small masses (category c / 51-75% glandular tissue). Current study was also evaluated with a Computer Aided Detection (CAD) system. There are benign post operative findings in both breasts. No significant masses, calcifications, or other findings are seen in either breast. There has been no significant interval change. IMPRESSION: BENIGN There is no mammographic evidence of malignancy. A 1 year screening mammogram is recommended. Based on Tyrer-Cuzick model (a risk assessment model), the patient's lifetime risk is 22.1% and her 10 year risk is 10.3%. If a patient has an elevated risk, a more comprehensive evaluation should be considered and/or a referral to a genetic counselor. The [place] [employer], [place] [employer], and NCCN Guidelines advise the consideration of Breast MRI as an adjunct to screening mammography in patients whose Lifetime risk to develop breast cancer is 20% or higher. This exam was interpreted at Station ID: [id number]. NOTE: For mammograms, a report in lay terms will be sent to the patient. Approximately 15% of breast malignancies will not be visualized mammographically. In the management of a palpable breast mass, a negative mammogram must not discourage biopsy of a clinically suspicious lesion. Electronically Signed By: Conrad tierney/ricco:10/05/2022 16:43:35 letter sent: Normal Exam ACR BI-RADS Category 2: Benign Finding(s) 3342F
== END ==
PROVIDERS: PCP Family Medicine; Referring Provider Family Medicine; Visit Provider Family Medicine
DX: Z12.31 Encounter for screening mammogram for malignant neoplasm of breast (principal); Z80.3 Family history of malignant neoplasm of breast; Z13.820 Encounter for screening for osteoporosis; M85.852 Other specified disorders of bone density and structure, left thigh; Z78.0 Asymptomatic menopausal state; Z90.710 Acquired absence of both cervix and uterus
CPT/HCPCS: 77063; 77067; 77080

== ENCOUNTER → 2023-01-04 13:40 | Oncology outpatient (ONC) | payer OTHER, MEDICAID, SELFPAY ==
[2021-11-24 15:04] VITALS: BP 146/80; PULSE 66; RESP 16; TEMP 36; O2SAT 100
--- NOTE | 2021-11-24 15:09 | ONC.MSW ---
Description: New Pt F/F Visit Activity: Met with pt prior to her initial provider visit to introduce myself, offer services card, and discuss the ongoing availability of assistance, support, resources, insurance/financial support, etc. as needed. Pt shares that she is in the final stages of her divorce, and that her insurance will soon be changing. ANALYTICAL STATISTICIAN encouraged her to keep in contact, and that ANALYTICAL STATISTICIAN can assist with obtaining new insurance closer to this happening. Initially, the referral information was only to evaluate for familial hx of hemachromatosis, however, pt states that she is also wanting to be followed for her newly dx mycosis fungoides. No further immediate needs identified at this time, will plan to monitor next steps and continue assessment once pt returns to clinic.
--- NOTE | 2021-11-24 15:11 | P.CONONC_ITS ---
History of Present Illness - Data of Consult Primary Care Provider: Salma Ibarra DO - Consult Narrative Narrative: Farnaz Sidhu is a 60 year old female Referred for evaluation of possible mycosis fungoides and also family history of hemochromatosis. Farnaz has been having ongoing rashes over her arms and legs for the last several months. She has seen rapid outsole stitcher at the [facility] and has been told she may have mycosis fungoides although definitive pathology has not been obtained yet. She denies any fevers chills nausea vomiting or headaches. She is concerned about dissemination of mycosis fungoides her blood although she understands is rather rare. In addition her sister was recently diagnosed with hemochromatosis and underwent genetic testing for this. Farnaz has had iron studies done which were normal and her primary care provider's office. These were done in September of 2021. She has no history of cirrhosis or other end-organ disease. There is no history of congestive heart failure or renal disease as well. Currently her appetite is good and she denies any weight loss easy bruising or bleeding night sweats or lymphadenopathy. CC: Alfredito Pride MD Home Medications and Allergies Home Medications Medication Instructions Recorded Confirmed Type powdered magnesium PO PRN 05/14/19 09/17/19 History duloxetine 40 mg capsule,delayed 40 mg PO DAILY #30 cap 10/28/21 10/28/21 Rx release cholecalciferol (vitamin D3) 125 125 mcg PO DAILY 11/24/21 11/24/21 History mcg (5,000 unit) tablet (Vitamin D3) melatonin 3 mg tablet 3 mg PO BEDTIME PRN 11/24/21 11/24/21 History selenium 200 mcg capsule 200 mcg PO DAILY 11/24/21 11/24/21 History zinc 50 mg tablet 50 mg PO DAILY 11/24/21 11/24/21 History Allergies Allergy/AdvReac Type Severity Reaction Status Date / Time No Known Drug Allergies Allergy Verified 09/17/19 11: Medical History - Medical, Surgical, Family History Medical History: Medical History (Last Updated 10/28/21 @ 16:02 by Salma Ibarra DO) Arthritis Breast implant status Cervical cancer, FIGO stage IB1 Cervical stenosis of spine Constipation Family history of hemochromatosis Fibromyalgia Former smoker History of headache Hypertension Impaired vision Multiple neurological symptoms Needle stick injury Onset Date: 06/29/13 Numbness and tingling Paresthesias Postmenopausal bleeding PTSD (post-traumatic stress disorder) Ruptured tympanic membrane Thyroid dysfunction Surgical History: Surgical History (Last Updated 09/03/21 @ 11:11 by Salma Ibarra DO) History of colonoscopy History of hysterectomy for cancer Onset Date: ~07/2019 Family History: Family History (Last Reviewed 06/22/19 @ 00:09 by JEWEL Looney) Mother Tachycardia DVT (deep venous thrombosis) Varicose veins Osteoarthritis - Social History Smoking Status: Former smoker Review of Systems - Patient Self-Reported Symptoms SR ears, nose, mouth, throat issues: Ears ringing SR Skin issues: Skin rash or itching Constitutional: other (negative for unexpected weight change), no fever(s) Ears, nose, mouth, throat: no sore throat, no lump, no mass, no mouth sores Cardiovascular: no chest pain, no edema Respiratory: no shortness of breath, no cough Gastrointestinal: other (negative for blood in stool), no abdominal pain, no diarrhea Genitourinary: no dysuria, no hematuria Musculoskeletal: no abnormal gait, no back pain, no myalgias Integumentary: no rash, no itching Neurological: no abnormal gait, no dizziness, no headache(s) Hematologic/Lymphatic: no adenopathy Psychiatric: other (negative for decreased concentration), no anxiety Exam Vital signs: Vital Signs Temp Pulse Resp BP Pulse Ox 11/24/21 15:04 96.8 F L 66 16 146/80 H 100 Intake and Output 11/23/21 11/24/21 11/24/21 23:59 07:59 15:59 Other: Weight 64.6 kg Patient Weight 11/24/21 23:59 Weight 64.6 kg - Constitutional positive no acute distress, negative diaphoretic - Routine HEENT Exam Head: Present: normocephalic Eye: Present: PERRL (Conjunctivae normal) ENT: Present: mucous membranes moist - Routine Respiratory Exam Present: Clear to auscultation bilaterally. Absent: rales, respiratory distress, wheezes - Routine Cardiovascular Exam Present: RRR. Absent: murmur, irregular rhythm - Routine Abdominal Exam Present: soft. Absent: tenderness, distended, guarding - Routine Extremities Exam Present: full ROM. Absent: edema, tenderness (No Swelling) - Routine Skin Exam Present: dry, warm. Absent: lesions (No Bruising), jaundice - Routine Neurological Exam Present: alert, oriented X3. Absent: sensory deficit, motor deficit - Routine Psychiatric Exam Present: normal affect, normal thought process, cooperative. Absent: anxious, agitated Results - Imaging Additional studies: Procedures Administration of [id number], combined (12/05/12) Colonoscopy (02/09/13) Other nonoperative respiratory measurements (12/29/12) Prophylactic administration of vaccine against other diseases (12/05/12) Assessment and Plan (1) Mycosis fungoides Status: Acute This very pleasant 60-year-old female with recent rashes suspicious for mycosis fungoides although clear-cut pathology is not been obtained for this. I explained to her that dissemination of mycosis fungoides and the blood such as is rather rare and she has no indication in her peripheral blood that this is the case. Nonetheless I will go ahead and send flow cytometry to assess for this possibility. On exam she has no adenopathy splenomegaly or skin lesions currently. She has no systemic symptoms and denies any weight loss loss of appetite. I will plan to see her back to review results of this flow cytometry and the next 2-3 weeks. With regard to her family history of hemochromatosis I did explain to her that her recent ferritin and iron studies are normal and that she is unlikely to have clinically active hemochromatosis. She is still interested if she has a hereditary predisposition and would like to know if this for the sake of her children and future potential interactions with other diseases. I will go ahead and send hemochromatosis gene panel and reviewed this with her on her follow-up visit. Plan Flow cytometry today Hemochromatosis gene panel Return to clinic in 3-4 weeks to review the above. (1) Mycosis fungoides Qualifiers:
[2021-12-19 10:00] LABS: Add Manual Diff / Slide Review NO; Basophils Absolute Auto 100 /uL (0-100); Eosinophils Absolute Auto 200 /uL (0-450); Eosinophils Percent Auto 3.2 % (2-4); Hematocrit 38.5 % (36-46); Hemoglobin 13.1 g/dL (12.0-16.0); Lymphocytes Absolute Auto 1500 /uL (1100-4500); Lymphocytes Percent Auto 26.3 % (25-40); Mean Corpuscular HGB Conc 34.1 % (30-36); Mean Corpuscular Hemoglobin 30.1 PG (26-34); Mean Corpuscular Volume 88.2 fL (80-100); Monocytes Absolute Auto 400 /uL (0-900); Monocytes Percent Auto 7.4 % (3-14); Neutrophils Absolute Auto 3500 /uL (1500-7000); Neutrophils Percent Auto 62.1 % (50-75); Platelet Count 375 X10^3/uL (150-400); Red Blood Cell Count 4.36 X10^6/uL (4.0-5.2); Red Cell Distribution Width 13.4 % (11.6-14.8); White Blood Cell Count 5.7 X10^3/uL (4.5-11.0)
[2021-12-19 10:16] LABS: Alanine Aminotransferase 30 IU/L (<35); Albumin 4.5 g/dL (3.5-5.0); Albumin Globulin Ratio 1.7 (1.0-2.8); Alkaline Phosphatase 49 U/L (38-126); Aspartate Aminotransferase 40 IU/L (14-36); Bilirubin Total 0.4 mg/dL (0.2-1.3); Blood Urea Nitrogen 12 mg/dL (7-17); Calcium 9.2 mg/dL (8.4-10.2); Carbon Dioxide 32 mmol/L (22-32); Chloride 104 mmol/L (98-107); Estimated Glomerular Filt Rate > 60.0 mL/min (>60); Globulin 2.7 g/dL (1.7-4.1); Glucose 99 mg/dL (80-110); HEMOLYSIS 22 (0-50); Lactate Dehydrogenase 488 U/L (313-618); Potassium 4.6 mmol/L (3.4-5.1); Sodium 139 mmol/L (137-145); Total Protein 7.2 g/dL (6.3-8.2)
[2022-01-06 13:36] VITALS: BP 150/74; PULSE 70; RESP 16; TEMP 35.9; O2SAT 99
--- NOTE | 2022-01-06 13:47 | P.PNONC_ITS ---
PN -Subjective - Date of Visit Date of visit: 01/06/22 Chief Complaint: Hemochromatosis carrier Interval history: Farnaz is a very pleasant 61-year-old female referred for evaluation for family history of hemochromatosis. She is here to review genetic testing for this pa rticular condition. She also had flow cytometry done due to suspicion of mycosis fungoides although she has no clinically significant skin lesions currently and has not had a skin biopsy confirming T-cell malignancy. She has no other complaints today - Patient Self-Reported Symptoms SR ears, nose, mouth, throat issues: Ears ringing SR Skin issues: Skin rash or itching - ROS All Systems: reviewed and no additional remarkable complaints except as stated Constitutional ROS IM: other (Denies unintended weight loss), no fever(s) Ears, nose, mouth, throat: no sore throat, no lump, no mass, no mouth sores Cardiovascular: no chest pain, no edema Respiratory: no shortness of breath Gastrointestinal: flatulence, other (Denies blood in stool), no abdominal pain, no diarrhea Genitourinary: no dysuria, no hematuria Musculoskeletal: no abnormal gait, no back pain, no myalgias Integumentary: no rash, no itching Neurological: no abnormal gait, no dizziness, no headache(s) Psychiatric: other (negative for decreased concentration), no anxiety Home Medications and Allergies Home Medications Medication Instructions Recorded Confirmed Type powdered magnesium 1 tbsp PO PRN PRN 05/14/19 01/06/22 History cholecalciferol (vitamin D3) 125 125 mcg PO DAILY 11/24/21 01/06/22 History mcg (5,000 unit) tablet (Vitamin D3) melatonin 3 mg tablet 3 mg PO BEDTIME PRN 11/24/21 01/06/22 History selenium 200 mcg capsule 200 mcg PO DAILY 11/24/21 01/06/22 History zinc 50 mg tablet 50 mg PO DAILY 11/24/21 01/06/22 History duloxetine 40 mg capsule,delayed 40 mg PO DAILY #90 cap 12/28/21 01/06/22 Rx release Allergies Allergy/AdvReac Type Severity Reaction Status Date / Time No Known Drug Allergies Allergy Verified 12/10/21 14:29 Exam Vital signs: Vital Signs Temp Pulse Resp BP Pulse Ox 01/06/22 13:36 96.7 F L 70 16 150/74 H 99 Intake and Output 01/05/22 01/06/22 01/06/22 23:59 07:59 15:59 Other: Weight 67 kg Patient Weight 01/06/22 23:59 Weight 67 kg - Constitutional positive no acute distress, negative diaphoretic - Routine HEENT Exam Head: Present: normocephalic Eye: Present: PERRL (Conjunctivae normal) ENT: Present: mucous membranes moist - Routine Respiratory Exam Present: Clear to auscultation bilaterally. Absent: rales, respiratory distress, wheezes - Routine Cardiovascular Exam Present: RRR. Absent: murmur, irregular rhythm - Routine Abdominal Exam Present: soft. Absent: tenderness, distended, guarding - Routine Extremities Exam Present: full ROM. Absent: edema, tenderness (No Swelling) - Routine Skin Exam Present: dry, warm. Absent: lesions (No Bruising), jaundice - Routine Neurological Exam Present: alert, oriented X3. Absent: sensory deficit, motor deficit - Routine Psychiatric Exam Present: normal affect, normal thought process, cooperative. Absent: anxious, agitated Results - Labs Laboratory Last Values WBC 5.7 X10^3/uL (4.5-11.0) 12/19/21 09:46 RBC 4.36 X10^6/uL (4.0-5.2) 12/19/21 09:46 Hgb 13.1 g/dL (12.0-16.0) 12/19/21 09:46 Hct 38.5 % (36-46) 12/19/21 09:46 MCV 88.2 fL (80-100) 12/19/21 09:46 MCH 30.1 PG (26-34) 12/19/21 09:46 MCHC 34.1 % (30-36) 12/19/21 09:46 RDW 13.4 % (11.6-14.8) 12/19/21 09:46 Plt Count 375 X10^3/uL (150-400) 12/19/21 09:46 Neut % (Auto) 62.1 % (50-75) 12/19/21 09:46 Lymph % (Auto) 26.3 % (25-40) 12/19/21 09:46 [place] % (Auto) 7.4 % (3-14) 12/19/21 09:46 Eos % (Auto) 3.2 % (2-4) 12/19/21 09:46 Baso % (Auto) 1.0 % (0-2) 12/19/21 09:46 Neut # (Auto) 3500 /uL (0380-4315) 12/19/21 09:46 Lymph # (Auto) 1500 /uL (1667-5561) 12/19/21 09:46 [place] # (Auto) 400 /uL (0-900) 12/19/21 09:46 Eos # (Auto) 200 /uL (0-450) 12/19/21 09:46 Baso # (Auto) 100 /uL (0-100) 12/19/21 09:46 Sodium 139 mmol/L (137-145) 12/19/21 09:46 Potassium 4.6 mmol/L (3.4-5.1) 12/19/21 09:46 Chloride 104 mmol/L (98-107) 12/19/21 09:46 Carbon Dioxide 32 mmol/L (22-32) 12/19/21 09:46 BUN 12 mg/dL (7-17) 12/19/21 09:46 Creatinine 0.60 mg/dL (0.52-1.04) 12/19/21 09:46 Estimated GFR > 60.0 mL/min (>60) 12/19/21 09:46 BUN/Creatinine Ratio 20.0 (6-22) 12/19/21 09:46 Glucose 99 mg/dL (80-110) 12/19/21 09:46 Calcium 9.2 mg/dL (8.4-10.2) 12/19/21 09:46 Total Bilirubin 0.4 mg/dL (0.2-1.3) 12/19/21 09:46 AST 40 IU/L (14-36) H 12/19/21 09:46 ALT 30 IU/L (<35) 12/19/21 09:46 Alkaline Phosphatase 49 U/L (38-126) 12/19/21 09:46 Lactate Dehydrogenase 488 U/L (313-618) 12/19/21 09:46 Total Protein 7.2 g/dL (6.3-8.2) 12/19/21 09:46 Albumin 4.5 g/dL (3.5-5.0) 12/19/21 09:46 Globulin 2.7 g/dL (1.7-4.1) 12/19/21 09:46 Albumin/Globulin Ratio 1.7 (1.0-2.8) 12/19/21 09:46 Leuk/Lymph Viability Not Reportable 12/19/21 09:46 Leuk/Lym Sample Descrip Comment (.) 12/19/21 09:46 Leuk/Lym Gating Strategy Not Reportable 12/19/21 09:46 Leuk/Lym Comment Comment (.) 12/19/21 09:46 Leuk/Lym Immunophen Prof Not Reportable 12/19/21 09:46 Leuk/Lym Phenotype Chart Not Reportable 12/19/21 09:46 L/L Sign Pathologist Comment (.) 12/19/21 09:46 CLL Flow Interpret Comment (.) 12/19/21 09:46 Hemochromatosis DNA PCR Comment (.) 12/19/21 09:46 Leuk/Lymph Case # TNP 12/19/21 09:46 Leuk/Lymph Ind for Study Comment (.) 12/19/21 09:46 Leuk/Lymph Flow Com Comment (.) 12/19/21 09:46 CLL (FISH) Add Info TNP 12/19/21 09:46 CLL Prog Comp Assess Not Reportable 12/19/21 09:46 - Imaging Additional studies: Procedures Administration of tgygvwzqak-ffwdksc-tbqcqprgf, combined (12/05/12) Colonoscopy (02/09/13) Other nonoperative respiratory measurements (12/29/12) Prophylactic administration of vaccine against other diseases (12/05/12) Assessment and Plan (1) Mycosis fungoides Status: Inactive This very pleasant 60-year-old female with recent rashes suspicious for mycosis fungoides although clear-cut pathology is not been obtained for this. I explained to her that dissemination of mycosis fungoides and the blood such as is rather rare and she has no indication in her peripheral blood that this is the case. Nonetheless I will go ahead and send flow cytometry to assess for this possibility. On exam she has no adenopathy splenomegaly or skin lesions currently. She has no systemic symptoms and denies any weight loss loss of appetite. Review laboratories including flow cytometry shows that she has no evidence of mycosis fungoides. She can follow-up with her primary care provider. 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 At this point in time will monitor her labs/ferritin levels once a year however she has very low risk for any of progression to hemochromatosis. Plan Return to clinic in 1 year with repeat CBC ferritin and chemistry panel. (1) Mycosis fungoides Qualifiers:
--- NOTE | 2022-01-06 13:53 | ONC.SCHED ---
Left VM for patient to schedule 1 year fup with labs prior.
[2022-10-05 16:33] LABS: Add Manual Diff / Slide Review NO; Basophils Absolute Auto 100 /uL (0-100); Basophils Percent Auto 1.3 % (0-2); Eosinophils Absolute Auto 300 /uL (0-450); Eosinophils Percent Auto 4.1 % (2-4); Hematocrit 38.5 % (36-46); Hemoglobin 13.1 g/dL (12.0-16.0); Lymphocytes Absolute Auto 1900 /uL (1100-4500); Lymphocytes Percent Auto 31.4 % (25-40); Mean Corpuscular HGB Conc 33.9 % (30-36); Mean Corpuscular Hemoglobin 29.3 PG (26-34); Mean Corpuscular Volume 86.5 fL (80-100); Monocytes Absolute Auto 400 /uL (0-900); Monocytes Percent Auto 7.2 % (3-14); Neutrophils Absolute Auto 3400 /uL (1500-7000); Platelet Count 381 X10^3/uL (150-400); Red Blood Cell Count 4.45 X10^6/uL (4.0-5.2); Red Cell Distribution Width 13.5 % (11.6-14.8); White Blood Cell Count 6.2 X10^3/uL (4.5-11.0)
[2022-10-05 16:37] LABS: Alanine Aminotransferase 35 IU/L (<35); Albumin 4.5 g/dL (3.5-5.0); Albumin Globulin Ratio 1.6 (1.0-2.8); Alkaline Phosphatase 79 U/L (38-126); Aspartate Aminotransferase 36 IU/L (14-36); BUN Creatinine Ratio 34.6 (6-22); Bilirubin Total 0.3 mg/dL (0.2-1.3); Blood Urea Nitrogen 18 mg/dL (7-17); Calcium 9.1 mg/dL (8.4-10.2); Carbon Dioxide 30 mmol/L (22-32); Chloride 102 mmol/L (98-107); Estimated Glomerular Filt Rate > 60 mL/min (>60); Globulin 2.9 g/dL (1.7-4.1); Glucose 123 mg/dL (80-110); HEMOLYSIS 18 (0-50); Potassium 4.1 mmol/L (3.4-5.1); Sodium 140 mmol/L (137-145); Total Protein 7.4 g/dL (6.3-8.2)
[2022-10-05 17:29] LABS: Ferritin 162 ng/mL (11-264)
[2022-10-05 19:52] LABS: Microalbumin Urine Random 0.8 mg/dL (0-1.6)
--- NOTE | 2022-12-22 10:07 | PC.NURSE ---
Labs done 10/05/22: per Dr. Pride, these labs are ok for f/u on 01/04/23.
[2023-01-04 14:13] VITALS: BP 141/71; PULSE 66; RESP 16; TEMP 36.1; O2SAT 100
--- NOTE | 2023-01-04 14:25 | P.PNONC_ITS ---
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 She is here to review genetic testing for this pa rticular condition. She also had flow cytometry done due to suspicion of mycosis fungoides although she has no clinically significant skin lesions currently and has not had a skin biopsy confirming T-cell malignancy. She has no other complaints today - Patient Self-Reported Symptoms SR ears, nose, mouth, throat issues: Ears ringing SR Skin issues: Dry skin Home Medications and Allergies Home Medications Medication Instructions Recorded Confirmed Type cholecalciferol (vitamin D3) 125 125 mcg PO DAILY 11/24/21 01/04/23 History mcg (5,000 unit) tablet (Vitamin D3) melatonin 3 mg tablet 3 mg PO BEDTIME PRN Insomnia 11/24/21 01/04/23 History zinc 50 mg tablet 50 mg PO DAILY 11/24/21 01/04/23 History multivitamin 1 tab PO DAILY 01/04/23 01/04/23 History Allergies Allergy/AdvReac Type Severity Reaction Status Date / Time No Known Drug Allergies Allergy Verified 04/05/22 10:08 Exam Vital signs: Vital Signs Temp Pulse Resp BP Pulse Ox 01/04/23 14:13 97.0 F L 66 16 141/71 H 100 Intake and Output 01/03/23 01/04/23 01/04/23 23:59 07:59 15:59 Other: Weight 64.2 kg Patient Weight 01/04/23 23:59 Weight 64.2 kg Results - Labs Laboratory Last Values WBC 6.2 X10^3/uL (4.5-11.0) 10/05/22 16:01 RBC 4.45 X10^6/uL (4.0-5.2) 10/05/22 16:01 Hgb 13.1 g/dL (12.0-16.0) 10/05/22 16:01 Hct 38.5 % (36-46) 10/05/22 16:01 MCV 86.5 fL (80-100) 10/05/22 16:01 MCH 29.3 PG (26-34) 10/05/22 16:01 MCHC 33.9 % (30-36) 10/05/22 16:01 RDW 13.5 % (11.6-14.8) 10/05/22 16:01 Plt Count 381 X10^3/uL (150-400) 10/05/22 16:01 Neut % (Auto) 56.0 % (50-75) 10/05/22 16:01 Lymph % (Auto) 31.4 % (25-40) 10/05/22 16:01 [place] % (Auto) 7.2 % (3-14) 10/05/22 16:01 Eos % (Auto) 4.1 % (2-4) H 10/05/22 16:01 Baso % (Auto) 1.3 % (0-2) 10/05/22 16:01 Neut # (Auto) 3400 /uL (0817-8575) 10/05/22 16:01 Lymph # (Auto) 1900 /uL (5495-5948) 10/05/22 16:01 [place] # (Auto) 400 /uL (0-900) 10/05/22 16:01 Eos # (Auto) 300 /uL (0-450) 10/05/22 16:01 Baso # (Auto) 100 /uL (0-100) 10/05/22 16:01 Sodium 140 mmol/L (137-145) 10/05/22 16:01 Potassium 4.1 mmol/L (3.4-5.1) 10/05/22 16:01 Chloride 102 mmol/L (98-107) 10/05/22 16:01 Carbon Dioxide 30 mmol/L (22-32) 10/05/22 16:01 BUN 18 mg/dL (7-17) H 10/05/22 16:01 Creatinine 0.52 mg/dL (0.52-1.04) 10/05/22 16:01 Estimated GFR > 60 mL/min (>60) 10/05/22 16:01 BUN/Creatinine Ratio 34.6 (6-22) H 10/05/22 16:01 Glucose 123 mg/dL (80-110) H 10/05/22 16:01 Calcium 9.1 mg/dL (8.4-10.2) 10/05/22 16:01 Ferritin 162 ng/mL (11-264) 10/05/22 16:01 Total Bilirubin 0.3 mg/dL (0.2-1.3) 10/05/22 16:01 AST 36 IU/L (14-36) 10/05/22 16:01 ALT 35 IU/L (<35) H 10/05/22 16:01 Alkaline Phosphatase 79 U/L (38-126) 10/05/22 16:01 Lactate Dehydrogenase 488 U/L (313-618) 12/19/21 09:46 Total Protein 7.4 g/dL (6.3-8.2) 10/05/22 16:01 Albumin 4.5 g/dL (3.5-5.0) 10/05/22 16:01 Globulin 2.9 g/dL (1.7-4.1) 10/05/22 16:01 Albumin/Globulin Ratio 1.6 (1.0-2.8) 10/05/22 16:01 Ur Random Microalbumin 0.8 mg/dL (0-1.6) 10/05/22 16:01 Urine Creatinine 160.0 mg/dL 10/05/22 16:01 Microalb/Creat Ratio 5.0 ug/mg CR (<30) 10/05/22 16:01 Leuk/Lymph Viability Not Reportable 12/19/21 09:46 Leuk/Lym Sample Descrip Comment (.) 12/19/21 09:46 Leuk/Lym Gating Strategy Not Reportable 12/19/21 09:46 Leuk/Lym Comment Comment (.) 12/19/21 09:46 Leuk/Lym Immunophen Prof Not Reportable 12/19/21 09:46 Leuk/Lym Phenotype Chart Not Reportable 12/19/21 09:46 L/L Sign Pathologist Comment (.) 12/19/21 09:46 CLL Flow Interpret Comment (.) 12/19/21 09:46 Hemochromatosis DNA PCR Comment (.) 12/19/21 09:46 Leuk/Lymph Case # TNP 12/19/21 09:46 Leuk/Lymph Ind for Study Comment (.) 12/19/21 09:46 Leuk/Lymph Flow Com Comment (.) 12/19/21 09:46 CLL (FISH) Add Info TNP 12/19/21 09:46 CLL Prog Comp Assess Not Reportable 12/19/21 09:46 - Imaging Additional studies: Procedures Administration of vgixlywraq-vwqxxfb-dxzmommsq, combined (12/05/12) Colonoscopy (02/09/13) Other nonoperative respiratory measurements (12/29/12) Prophylactic administration of vaccine against other diseases (12/05/12) Assessment and Plan (1) Mycosis fungoides Status: Inactive This very pleasant 60-year-old female with recent rashes suspicious for mycosis fungoides although clear-cut pathology is not been obtained for this. I explai surjit to her that dissemination of mycosis fungoides and the blood such as is rather rare and she has no indication in her peripheral blood that this is the case. Nonetheless I will go ahead and send flow cytometry to assess for this possibility. On exam she has no adenopathy splenomegaly or skin lesions currently. She has no systemic symptoms and denies any weight loss loss of appetite. Review laboratories including flow cytometry shows that she has no evidence of mycosis fungoides. She can follow-up with her primary care provider. 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 At this point in time will monitor her labs/ferritin levels once a year however she has very low risk for any of progression to hemochromatosis. Plan Return to clinic in 1 year with repeat CBC ferritin and chemistry panel. (1) Mycosis fungoides Qualifiers:
--- NOTE | 2023-12-22 14:14 | ONC.SCHED ---
lvm for patient to call re: 1 yr fu and DAYAN
--- NOTE | 2023-12-28 13:34 | ONC.SCHED ---
Addendum entered by Kavya Pfeiffer 01/02/24 09:53: Voicemail from pt on 12/30/23 stating she will call back if she needs any assistance. She does not feel she needs to be seen. Original Note: left 2nd voicemail for patient to call re: DAYAN; 01/03/24 appt cancelled
== END ==
PROVIDERS: Family Medicine; PCP Family Medicine; Referring Provider Family Medicine; Visit Provider Internal Medicine Medical Oncology
DX: C84.00 Mycosis fungoides, unspecified site (principal); M79.7 Fibromyalgia; Z14.8 Genetic carrier of other disease; Z83.49 Family history of other endocrine, nutritional and metabolic diseases; Z87.891 Personal history of nicotine dependence
CPT/HCPCS: 36415; 80053; 81256; 82043; 82570; 82728; 83615; 85025; 88184; 99204; 99213; 99214

== ENCOUNTER → 2023-10-06 12:43 | Outpatient (CLI) | payer OTHER, MEDICAID, SELFPAY ==
--- NOTE | 2023-10-06 | DI.MG.S_ITS ---
BILATERAL DIGITAL SCREENING MAMMOGRAM 3D/2D WITH CAD: 10/06/2023 CLINICAL: Routine screening. Family history of breast cancer. Comparison is made to exams dated: 10/05/2022 mammogram, 05/08/2021 mammogram, and 02/23/2019 mammogram - [facility]. Both breasts are heterogeneously dense, which may obscure small masses (category c / 51-75% glandular tissue). Current study was also evaluated with a Computer Aided Detection (CAD) system. There are benign post operative findings in both breasts. No significant masses, calcifications, or other findings are seen in either breast. IMPRESSION: BENIGN There is no mammographic evidence of malignancy. A 1 year screening mammogram is recommended. Based on Tyrer-Cuzick model (a risk assessment model), the patient's lifetime risk is 21.4% and her 10 year risk is 10.3%. If a patient has an elevated risk, a more comprehensive evaluation should be considered and/or a referral to a genetic counselor. The [place] [employer], [place] [employer], and NCCN Guidelines advise the consideration of Breast MRI as an adjunct to screening mammography in patients whose Lifetime risk to develop breast cancer is 20% or higher. This exam was interpreted at Station ID: [id number]. NOTE: For mammograms, a report in lay terms will be sent to the patient. Approximately 15% of breast malignancies will not be visualized mammographically. In the management of a palpable breast mass, a negative mammogram must not discourage biopsy of a clinically suspicious lesion. Electronically Signed By: Tatum Garcia M.D., PH.D eddie/ricco:10/07/2023 00:44:34 letter sent: Normal Exam ACR BI-RADS Category 2: Benign Finding(s) 3342F
== END ==
PROVIDERS: PCP Family Medicine; Referring Provider Family Medicine; Visit Provider Family Medicine
DX: Z12.31 Encounter for screening mammogram for malignant neoplasm of breast (principal); Z80.3 Family history of malignant neoplasm of breast
CPT/HCPCS: 77063; 77067

== ENCOUNTER → 2023-11-01 08:22 | Outpatient (CLI) | payer OTHER, MEDICAID, SELFPAY ==
[2023-11-01 10:13] LABS: Cholesterol 220 mg/dL (140-199); HDL Cholesterol 41 mg/dL (40-60); LDL Cholesterol Calculated 143 mg/dL (<100); Triglycerides 182 mg/dL (35-150)
[2023-11-01 10:14] LABS: Alanine Aminotransferase 25 IU/L (<35); Albumin 4.4 g/dL (3.5-5.0); Albumin Globulin Ratio 1.6 (1.0-2.8); Alkaline Phosphatase 63 U/L (38-126); BUN Creatinine Ratio 17.7 (6-22); Bilirubin Total 0.6 mg/dL (0.2-1.3); Blood Urea Nitrogen 11 mg/dL (7-17); Calcium 10.1 mg/dL (8.4-10.2); Carbon Dioxide 29 mmol/L (22-32); Chloride 103 mmol/L (98-107); Estimated Glomerular Filt Rate > 60 mL/min (>60); Globulin 2.7 g/dL (1.7-4.1); Glucose 89 mg/dL (80-110); HEMOLYSIS < 15 (0-50); Lactate Dehydrogenase 184 U/L (120-246); Potassium 4.7 mmol/L (3.4-5.1); Sodium 141 mmol/L (137-145); Total Protein 7.1 g/dL (6.3-8.2)
[2023-11-01 10:17] LABS: Basophils Absolute Auto 0 /uL (0-100); Basophils Percent Auto 0.7 % (0-2); Eosinophils Absolute Auto 200 /uL (0-450); Eosinophils Percent Auto 3.4 % (2-4); Hematocrit 42.3 % (36-46); Hemoglobin 14.3 g/dL (12.0-16.0); High Sensitivity CRP - Cardiac 1.9 mg/L (1.0-3.0); Lymphocytes Absolute Auto 1700 /uL (1100-4500); Lymphocytes Percent Auto 29.1 % (25-40); Mean Corpuscular HGB Conc 33.8 % (30-36); Mean Corpuscular Hemoglobin 29.7 PG (26-34); Mean Corpuscular Volume 87.8 fL (80-100); Monocytes Absolute Auto 400 /uL (0-900); Monocytes Percent Auto 7.4 % (3-14); Neutrophils Absolute Auto 3400 /uL (1500-7000); Neutrophils Percent Auto 59.4 % (50-75); Platelet Count 274 X10^3/uL (150-400); Red Blood Cell Count 4.82 X10^6/uL (4.0-5.2); Red Cell Distribution Width 13.3 % (11.6-14.8); White Blood Cell Count 5.7 X10^3/uL (4.5-11.0)
[2023-11-01 10:25] LABS: Add Manual Diff / Slide Review SLIDE REVIEW
[2023-11-01 10:44] LABS: RBC Morphology Normal Morphology
[2023-11-01 10:49] LABS: Ferritin 138 ng/mL (11-264)
[2023-11-02 06:44] LABS: Fecal Immunochemical Test Negative (Negative)
[2023-11-04 14:43] LABS: Aspartate Aminotransferase 32 IU/L (14-36)
== END ==
LOC: LAB 08:24
PROVIDERS: Internal Medicine Medical Oncology; PCP Family Medicine; Referring Provider Family Medicine; Visit Provider Family Medicine
DX: Z12.11 Encounter for screening for malignant neoplasm of colon (principal); Z12.12 Encounter for screening for malignant neoplasm of rectum; C84.00 Mycosis fungoides, unspecified site; E78.5 Hyperlipidemia, unspecified; G62.9 Polyneuropathy, unspecified; Z14.8 Genetic carrier of other disease
CPT/HCPCS: 36415; 80053; 80061; 82274; 82728; 83615; 85025; 86140

== ENCOUNTER → 2023-12-05 08:52 | Outpatient (CLI) | payer MEDICARE, OTHER, MEDICAID, SELFPAY ==
--- NOTE | 2023-12-05 09:41 | DI.MRI.S_ITS ---
BREAST MRI OF BOTH BREASTS: 12/05/2023 CLINICAL: Family History of Malignant neoplasm of Breast. PROCEDURE: MR BREAST BI WO/W CON INDICATIONS: breast cancer screening TECHNIQUE: The patient was placed prone in a dedicated breast imaging coil. Precontrast axial STIR and 3D FLASH without fat saturation sequences were obtained. Both before and after bolus injection of contrast, sequential 1-minute axial 3D FLASH with fat saturation sequences for 3 time points, with subtraction images and maximum intensity projections (MIP's) generated. Delayed sagittal FLASH images with fat saturation were also obtained. Computer-aided detection, including computer algorithm analysis of MRI image data for lesion detection and characterization, pharmacokinetic analysis, with further physician review for interpretation, was performed. COMPARISON: None. FINDINGS: Image quality: Excellent. There is minimal background parenchymal enhancement. Right breast: No suspicious enhancement or mass lesions Left breast: No suspicious enhancement or mass lesions. Miscellaneous: No axillary adenopathy or intramammary adenopathy. Limited visualization of the heart, lungs, and mediastinum are unremarkable. IMPRESSION: NEGATIVE Negative breast MRI. Return to annual mammogram screening schedule is recommended. Future imaging is recommended as follows: 10/06/2024 screening mammogram. This exam was interpreted at Station ID: [id number]. Electronically Signed By: Judith Cobian M.D. lk/:12/05/2023 17:25:09 ACR BI-RADS Category 1: Negative 3341F
== END ==
PROVIDERS: PCP Family Medicine; Referring Provider Family Medicine; Visit Provider Family Medicine
DX: Z12.39 Encounter for other screening for malignant neoplasm of breast (principal); Z80.3 Family history of malignant neoplasm of breast; Z98.86 Personal history of breast implant removal; E03.9 Hypothyroidism, unspecified
CPT/HCPCS: 77049; A9579

== ENCOUNTER → 2023-12-15 07:23 | Outpatient (CLI) | payer MEDICARE, OTHER, MEDICAID, SELFPAY ==
[2023-12-17 14:17] LABS: Cholesterol, Total 192 mg/dL (100-199); HDL-Cholesterol 53 mg/dL (>39); HDL-Particle (Total) 37.3 umol/L (>=30.5); LDL Particle 1654 nmol/L (<1000); LDL Size 20.1 nm (>20.5); LDL-Cholsterol 118 mg/dL (0-99); LP-IR Score 56 (<=45); Small LDL- Particle 1084 nmol/L (<=527); Triglycerides 120 mg/dL (0-149)
== END ==
PROVIDERS: PCP Family Medicine; Referring Provider Family Medicine; Visit Provider Family Medicine
DX: E03.9 Hypothyroidism, unspecified (principal); E78.00 Pure hypercholesterolemia, unspecified
CPT/HCPCS: 36415; 80061; 83704; 84443

== ENCOUNTER 2023-12-15 11:33 | Emergency (ER) | payer MEDICARE, OTHER, MEDICAID, SELFPAY ==
[2023-12-15] VITALS (26 sets, daily range): BP systolic 121–201; BP diastolic 60–89; PULSE 60–82; RESP 14–32; TEMP 36.6; O2SAT 95–100; BMI 21.7
--- NOTE | 2023-12-15 11:43 | DI.RAD.S_ITS ---
PROCEDURE: XR CHEST 1V INDICATIONS: chest pain TECHNIQUE: One view of the chest was acquired. COMPARISON: [facility], CR, XR CHEST 1V, 10/06/2018, 20:14. FINDINGS: Surgical changes and devices: None. Lungs and pleura: Lungs are clear. No pleural effusions or pneumothorax. Mediastinum: Mediastinal contours appear normal. Heart size is normal. Bones and chest wall: No suspicious bony lesions. Overlying soft tissues appear unremarkable. IMPRESSION: No acute cardiopulmonary abnormality is seen. Dictated by: Judith Cobian M.D. on 12/15/2023 at 12:48 Approved by: Judith Cobian M.D. on 12/15/2023 at 12:48
[2023-12-15] MEDS: ASPIRIN 81 MG CHEW TAB 324 MG PO (11:46)
[2023-12-15 12:08] LABS: Add Manual Diff / Slide Review NO; Basophils Absolute Auto 100 /uL (0-100); Basophils Percent Auto 0.7 % (0-2); Eosinophils Absolute Auto 0 /uL (0-450); Eosinophils Percent Auto 0.5 % (2-4); Hematocrit 42.3 % (36-46); Hemoglobin 14.4 g/dL (12.0-16.0); Lymphocytes Absolute Auto 1300 /uL (1100-4500); Lymphocytes Percent Auto 16.2 % (25-40); Mean Corpuscular HGB Conc 33.9 % (30-36); Mean Corpuscular Hemoglobin 29.5 PG (26-34); Monocytes Absolute Auto 400 /uL (0-900); Monocytes Percent Auto 5.4 % (3-14); Neutrophils Absolute Auto 6000 /uL (1500-7000); Neutrophils Percent Auto 77.2 % (50-75); Platelet Count 410 X10^3/uL (150-400); Red Blood Cell Count 4.86 X10^6/uL (4.0-5.2); Red Cell Distribution Width 13.2 % (11.6-14.8); White Blood Cell Count 7.8 X10^3/uL (4.5-11.0)
[2023-12-15] MEDS: ONDANSETRON 4 MG/2 ML INJ IV (12:15)
[2023-12-15 12:19] LABS: INR 0.9 (0.9-1.3); Prothrombin Time 10.8 SECONDS (9.4-12.5)
[2023-12-15 12:21] LABS: PTT Partial Thromboplastin Tim 33 SECONDS (25.1-36.5)
[2023-12-15 12:23] LABS: Alanine Aminotransferase 38 IU/L (<35); Albumin 5.2 g/dL (3.5-5.0); Albumin Globulin Ratio 1.5 (1.0-2.8); Alkaline Phosphatase 69 U/L (38-126); Aspartate Aminotransferase 39 IU/L (14-36); BUN Creatinine Ratio 21.4 (6-22); Bilirubin Total 0.7 mg/dL (0.2-1.3); Blood Urea Nitrogen 12 mg/dL (7-17); Carbon Dioxide 26 mmol/L (22-32); Chloride 101 mmol/L (98-107); Creatine Kinase 144 U/L (30-135); Estimated Glomerular Filt Rate > 60 mL/min (>60); Globulin 3.5 g/dL (1.7-4.1); Glucose 135 mg/dL (80-110); HEMOLYSIS < 15 (0-50); Lipase 97 U/L (23-300); Potassium 3.7 mmol/L (3.4-5.1); Sodium 141 mmol/L (137-145); Total Protein 8.7 g/dL (6.3-8.2)
[2023-12-15 12:34] LABS: Troponin I < 0.012 ng/mL (0.01-0.034)
--- NOTE | 2023-12-15 13:14 | ED_ITS ---
HPI - Chest Pain General Chief Complaint: Chest Pain Stated Complaint: heart distress Time Seen by Provider: 12/15/23 12:47 Source: patient Mode of arrival: Ambulatory Limitations: no limitations History of Present Illness HPI narrative: patient here for off and on substernal chest pain radiating to the neck for the past 3 months. Seen by primary care through this time. Head CT calcium imaging done with a score of 391 this past week. Patient has never had echocardiogram or stress test. Father had fatal RI in his 40s. Patient has had exertional chest pain shortness of breath dizziness dyspnea. Has mild chest discomfort at this time. Aspirin given at triage. No recent illness. No cough cold or congestion. No history of blood clots in legs or lungs. Related Data Home Medications Medication Instructions Recorded Confirmed cholecalciferol (vitamin D3) 125 125 mcg PO DAILY 11/24/21 12/15/23 mcg (5,000 unit) tablet (Vitamin D3) melatonin 3 mg tablet 3 mg PO BEDTIME PRN Insomnia 11/24/21 12/15/23 coQ10 (ubiquinol) 200 mg capsule 200 mg PO DAILY 12/15/23 12/15/23 Previous Rx's Medication Instructions Recorded atorvastatin 40 mg tablet 40 mg PO BEDTIME #30 tabs 12/13/23 Allergies Allergy/AdvReac Type Severity Reaction Status Date / Time No Known Drug Allergies Allergy Verified 12/15/23 14:55 Review of Systems Review of Systems Narrative: GENERAL: negative chills, fatigue, malaise, fever, sweats. HEENT: negative sinus pain, ear pain, sore throat RESPIRATORY: positivedyspnea, negative cough CARDIOVASCULAR: Positivechest pain, palpitations GASTROINTESTINAL: negative nausea, vomiting, abdominal pain : negative dysuria, frequency, hematuria MUSCULOSKELETAL: negative muscle or bony pain SKIN: negative rash, skin lesions NEUROLOGIC: negative weakness, numbness, positive dizzy ROS Unobtainable: All systems reviewed & are unremarkable except as noted in HPI and below Patient History Medical History JENNA (generalized anxiety disorder) Family history of hemochromatosis Cervical cancer, FIGO stage IB1 Needle stick injury (06/29/13) Spondylosis of lumbar spine Spondylosis of cervical spine Somatic dysfunction of cervical region Multiple neurological symptoms Former smoker Impaired vision History of headache Constipation Arthritis Hypertension Numbness and tingling Postmenopausal bleeding Cervical stenosis of spine Thyroid dysfunction Paresthesias Hypothyroidism Psoriasis Fibromyalgia Breast implant status PTSD (post-traumatic stress disorder) Pruritic condition Atrophic vaginitis (10/09/14) Menopause present (10/09/14) Depression (10/09/14) Ruptured tympanic membrane Surgical History History of hysterectomy for cancer (~07/2019) History of colonoscopy Family History Mother Tachycardia DVT (deep venous thrombosis) Varicose veins Osteoarthritis Social History marital status: household members: spouse lives independently: Yes Smoking Status: Former smoker alcohol intake: current Smoking Status: Former smoker alcohol intake frequency: a few times a month Substance Use Type: does not use Exam Narrative Exam Narrative: GENERAL: in no distress, not toxic not dyspneic HEAD: Normocephalic. EYES: Pupils equal round ENT: Mucous membranes moist. NECK: Trachea midline. CARDIOVASCULAR: Regular rate and rhythm RESPIRATORY: Clear to auscultation. Breath sounds equal bilaterally. No wheezes, rales, or rhonchi. GASTROINTESTINAL: Abdomen soft, non-tender EXTREMITIES: No gross deformities. BACK: No flank tenderness. NEURO: AOx4. SKIN: Warm and dry PSYCH: Not anxious, is cooperative Initial Vital Signs Initial Vital Signs: Vital Signs Temperature 97.9 F 12/15/23 11:37 Pulse Rate 72 12/15/23 11:37 Respiratory Rate 14 12/15/23 11:37 Blood Pressure 190/85 H 12/15/23 11:37 Pulse Oximetry 99 12/15/23 11:37 Oxygen Delivery Method Room Air 12/15/23 11:37 Course Orders Ordered: Discontinued Medications Alprazolam (Alprazolam 0.25 Mg Tablet) 0.5 mg PO NOW ONE Stop: 12/15/23 16:43 Last Admin: 12/15/23 16:49 Dose: 0.5 mg Documented By: SAVANNA Aspirin (Aspirin 81 Mg Chew Tab) 324 mg PO NOW ONE Stop: 12/15/23 11:44 Last Admin: 12/15/23 11:46 Dose: 324 mg Documented By: MAYCOL Nitroglycerin (Nitroglycerin Oint 1 Inch/Gm Oint...G.) 1 inch TOP NOW ONE Stop: 12/15/23 13:16 Last Admin: 12/15/23 13:47 Dose: 1 inch Documented By: JEAN Ondansetron HCl (Ondansetron 4 Mg/2 Ml Inj) 4 mg IV NOW PRN PRN Reason: Nausea And Vomiting Last Admin: 12/15/23 12:15 Dose: 4 mg Documented By: SAVANNA Vital Signs Vital signs: Vital Signs - 8 hr 12/15/23 11:37 12/15/23 11:52 12/15/23 11:53 Temperature 97.9 F Pulse Rate 72 74 77 Respiratory Rate 14 17 16 Blood Pressure 190/85 H Pulse Oximetry 99 99 99 Oxygen Delivery Method Room Air 12/15/23 11:53 12/15/23 12:00 12/15/23 12:01 Temperature Pulse Rate 72 Respiratory Rate 16 Blood Pressure 201/89 H 169/73 H Pulse Oximetry 99 Oxygen Delivery Method Room Air 12/15/23 12:01 12/15/23 12:30 12/15/23 12:31 Temperature Pulse Rate 71 60 63 Respiratory Rate 20 Blood Pressure Pulse Oximetry 99 98 98 Oxygen Delivery Method 12/15/23 12:31 12/15/23 13:00 12/15/23 13:01 Temperature Pulse Rate 62 Respiratory Rate 20 Blood Pressure 155/65 H 158/70 H Pulse Oximetry 98 Oxygen Delivery Method 12/15/23 13:01 12/15/23 13:46 12/15/23 13:46 Temperature Pulse Rate 64 61 Respiratory Rate 22 20 Blood Pressure 158/79 H Pulse Oximetry 99 95 Oxygen Delivery Method Room Air 12/15/23 13:47 12/15/23 14:00 12/15/23 14:00 Temperature Pulse Rate 61 63 Respiratory Rate 18 Blood Pressure 158/79 H 156/74 H Pulse Oximetry 100 Oxygen Delivery Method 12/15/23 14:15 12/15/23 14:15 Temperature Pulse Rate 65 Respiratory Rate 20 Blood Pressure 152/74 H Pulse Oximetry 100 Oxygen Delivery Method MDM - Chest Pain Lab Data 12/15/23 11:57 12/15/23 11:57 Labs: Lab Results 12/15/23 Range/Units 11:57 WBC 7.8 (4.5-11.0) X10^3/uL RBC 4.86 (4.0-5.2) X10^6/uL Hgb 14.4 (12.0-16.0) g/dL Hct 42.3 (36-46) % MCV 87.0 (80-100) fL MCH 29.5 (26-34) PG MCHC 33.9 (30-36) % RDW 13.2 (11.6-14.8) % Plt Count 410 H (150-400) X10^3/uL Neut % (Auto) 77.2 H (50-75) % Lymph % (Auto) 16.2 L (25-40) % Mills % (Auto) 5.4 (3-14) % Eos % (Auto) 0.5 L (2-4) % Baso % (Auto) 0.7 (0-2) % Neut # (Auto) 6000 (0414-2247) /uL Lymph # (Auto) 1300 (1503-5354) /uL Mills # (Auto) 400 (0-900) /uL Eos # (Auto) 0 (0-450) /uL Baso # (Auto) 100 (0-100) /uL PT 10.8 (9.4-12.5) SECONDS INR 0.9 (0.9-1.3) APTT 33 (25.1-36.5) SECONDS Sodium 141 (137-145) mmol/L Potassium 3.7 (3.4-5.1) mmol/L Chloride 101 (98-107) mmol/L Carbon Dioxide 26 (22-32) mmol/L BUN 12 (7-17) mg/dL Creatinine 0.56 (0.52-1.04) mg/dL Estimated GFR > 60 (>60) mL/min BUN/Creatinine Ratio 21.4 (6-22) Glucose 135 H (80-110) mg/dL Calcium 10.0 (8.4-10.2) mg/dL Magnesium 2.0 (1.6-2.3) mg/dL Total Bilirubin 0.7 (0.2-1.3) mg/dL AST 39 H (14-36) IU/L ALT 38 H (<35) IU/L Alkaline Phosphatase 69 (38-126) U/L Total Creatine Kinase 144 H (30-135) U/L Troponin I < 0.012 (0.01-0.034) ng/mL Total Protein 8.7 H (6.3-8.2) g/dL Albumin 5.2 H (3.5-5.0) g/dL Globulin 3.5 (1.7-4.1) g/dL Albumin/Globulin Ratio 1.5 (1.0-2.8) Lipase 97 (23-300) U/L Urine Dip Bedside Urine Glucose Negative Bedside Urine Bilirubin - Negative Bedside Urine Ketone +/- 5 Urine Specific [place] 1.005 Bedside Urine Occult Blood - Negative Bedside Urine pH 7.0 Bedside Urine Protein - Negative Bedside Urine Urobilinogen - Negative Bedside Urine Nitrite - Negative Bedside Urine Leukocytes - Negative Esterase Imaging Data Chest x-ray: Radiologist's Impression: [address] [address] XRay Report Signed Patient: Farnaz Sidhu MR#: [id number] : 1960 Acct:[id number] Age/Sex: 63 / F Date of Service: 12/15/23 Loc: ED Accession Number: [id number] Procedure: XR chest 1V Ordering Provider: Ji Zarate MD PROCEDURE: XR CHEST 1V INDICATIONS: chest pain TECHNIQUE: One view of the chest was acquired. COMPARISON: [facility], , XR CHEST 1V, 10/06/2018, 20:14. FINDINGS: Surgical changes and devices: None. Lungs and pleura: Lungs are clear. No pleural effusions or pneumothorax. Mediastinum: Mediastinal contours appear normal. Heart size is normal. Bones and chest wall: No suspicious bony lesions. Overlying soft tissues appear unremarkable. IMPRESSION: No acute cardiopulmonary abnormality is seen. Dictated by: Judith Cobian M.D. on 12/15/2023 at 12:48 Approved by: Judith Cobian M.D. on 12/15/2023 at 12:48 [facility] Narrative Medical decision making narrative: patient here for off and on substernal chest pain radiating to the neck for the past 3 months. Seen by primary care through this time. Head CT calcium imaging done with a score of 391 this past week. Patient has never had echocardiogram or stress test. Father had fatal RI in his 40s. Patient has had exertional chest pain shortness of breath dizziness dyspnea. Has mild chest discomfort at this time. Aspirin given at triage. No recent illness. No cough cold or congestion. No history of blood clots in legs or lungs. After history and exam CBC CMP troponin EKG chest x-ray cardiology consult [facility] CC: chest pain Complicating co-morbidities: hypercholesteremia, family history of coronary disease Data collected from: patient and friend Medical records reviewed: CT calcium exam Differential considered: Includes but not limited to STEMI non-STEMI angina Exam documented above, pertinent findings include: nontender chest Lab Test results independently reviewed as above. Pertinent findings: WBC 7.8 hemoglobin 14 hematocrit 42 GFR greater than 60 troponin less than 0.012 Independently reviewed EKG normal sinus rhythm rate [address] elevation or depression Imaging studies independently reviewed: chest x-ray no acute finding Consultations: 2:00 p.m.. 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 Patient still needs stress test echocardiogram. 2:[address] Bowman hospitalist here, we do not have stress test capability this week. Patient will need To be transferred 3:30 p.m.. Spoke with [facility], Dr. Medrano, hospitalist, will accept patient Treatments: aspirin nitro paste Re-evaluations: 2:30 p.m. Patient chest pain-free. Patient and sister do understand need for transfer. We do not have stress test capabilities this week. Discussion: appropriate for transfer for stress test. We do not have stress test capability this week due to lack of technicians. Patient remains chest pain-free at time of transfer. Diagnosis: Chest pain Discharge Plan Departure Patient Disposition: [facility] Clinical Impression: Chest pain Prescriptions: No Action atorvastatin 40 mg tablet 40 mg PO BEDTIME Qty: 30 2RF coQ10 (ubiquinol) 200 mg Capsule 200 mg PO DAILY melatonin 3 mg Tablet 3 mg PO BEDTIME PRN (Reason: Insomnia) cholecalciferol (vitamin D3) [Vitamin D3] 125 mcg (5,000 unit) Tablet 125 mcg PO DAILY Referrals: Shelia Beasley DO [Primary Care Provider] -
[2023-12-15] MEDS: NITROGLYCERIN OINT 1 INCH/GM OINT...G. TOP (13:47)
--- NOTE | 2023-12-15 14:37 | PC.NURSE ---
called [facility] and [facility] for possible transfer for stress test. [facility] will most likely be able to take patient. Will call back
--- NOTE | 2023-12-15 15:48 | PC.NURSE ---
Jameson @ [facility] transfer center called to give bed assignment: CDU rm 2 Nurse Rpt: Ronna [phone] Call transfer center back with patient ETA.
[2023-12-15] MEDS: ALPRAZolam 0.25 MG TABLET 0.5 MG PO (16:49)
== END 2023-12-15 17:52 | disposition short-term general hospital (02) ==
PROVIDERS: Emergency Provider Emergency Medicine; PCP Family Medicine
DX: R07.9 Chest pain, unspecified (principal); R06.02 Shortness of breath; R42 Dizziness and giddiness; R06.00 Dyspnea, unspecified; E03.9 Hypothyroidism, unspecified; E78.00 Pure hypercholesterolemia, unspecified
CPT/HCPCS: 36415; 71045; 80053; 80061; 81003; 82550; 83690; 83704; 83735; 84443; 84484; 85025; 85610; 85730; 93005; 93010; 96374; 99284; J2405

== ENCOUNTER → 2024-01-19 16:32 | Outpatient (CLI) | payer MEDICARE, SELFPAY ==
--- NOTE | 2024-01-19 16:36 | DI.MRI.S_ITS ---
PROCEDURE: MR THORACIC SPINE WO CON INDICATIONS: Radiculopathy cervical region, cervicalgia TECHNIQUE: Noncontrast sagittal T1 spine echo and T2 fast spin echo, sagittal STIR, and T2 fast spin echo through the thoracic spine. COMPARISON: [facility], , MR THORACIC SPINE WO CON, 04/24/2019, 13:08. FINDINGS: Image quality: Excellent. Alignment and Curvature: There is normal bony alignment. Bone Marrow: Marrow is of normal overall signal. No acute vertebral body compression fractures. Mild anterior wedging of multiple contiguous thoracic vertebral bodies results in mild increased thoracic kyphosis. Appearance is stable compared to the previous study. Spinal Cord: Visualized spinal cord is normal in size and signal. Paraspinous Soft Tissues: No paravertebral masses. Miscellaneous: On axial images, central canal and foramina appear widely patent at all scanned levels. There is mild posterior disc post osteophyte at T7-T8, without canal stenosis or foraminal stenosis. IMPRESSION: 1. No acute compression fractures. 2. Stable findings with increased thoracic kyphosis secondary to mild anterior wedging of multiple thoracic vertebral bodies. 3. No canal stenosis or foraminal stenosis. Dictated by: Nader Mohan M.D. on 01/20/2024 at 8:49 Approved by: Nader Mohan M.D. on 01/20/2024 at 8:53
--- NOTE | 2024-01-19 16:36 | DI.MRI.S_ITS ---
PROCEDURE: MR CERVICAL SPINE WO CON INDICATIONS: Radiculopathy cervical region, cervicalgia TECHNIQUE: Noncontrast sagittal T1 spin echo and T2 fast spin echo, sagittal STIR, foraminal oblique sagittal T2 fast spin echo, and axial gradient echo or T2 fast spin echo through the cervical spine. COMPARISON: [facility], MR, MR CERVICAL SPINE WO CON, 12/20/2018, 9:52. FINDINGS: Image quality: Excellent. Alignment and Curvature: Unchanged alignment. Trace anterolisthesis of C3 on C4. Trace retrolisthesis of C4 on C5 and C5 on C6. Trace anterolisthesis of C6 on C7. Bone Marrow: Marrow demonstrates normal overall signal. Spinal Cord: Visualized spinal cord has normal size and signal. No cerebellar tonsillar herniation. Paraspinous Soft Tissues: No paravertebral masses. Prevertebral soft tissues are normal in thickness. C2-C3: Minimal disc bulge. No canal stenosis. Mild right uncovertebral joint hypertrophy. Right facet hypertrophy. No significant foraminal stenosis. No significant change. C3-C4: No canal stenosis. Bilateral uncovertebral joint hypertrophy and facet hypertrophy. [id number] right foraminal stenosis. Unchanged findings. C4-C5: Progressive findings. Disc bulge. No canal stenosis. Bilateral uncovertebral joint hypertrophy and facet hypertrophy. There is now moderate to severe right foraminal narrowing with a degree of right foraminal C5 nerve root impingement. There is mild to moderate left foraminal narrowing. C5-C6: Interval increase in disc height loss. Disc bulge. Bilateral uncovertebral joint hypertrophy. Facet hypertrophy. Again noted is severe right foraminal narrowing with right foraminal C6 nerve root impingement. There is moderate left foraminal narrowing. C6-C7: Chronic disc height loss. No canal stenosis. Disc bulge. Bilateral facet hypertrophy, prominent on the right. There is a right foraminal facet joint impingement, but likely above the exiting right C7 nerve root. Foraminal nerve root impingement is not suspected. C7-T1: No canal stenosis or foraminal stenosis. IMPRESSION: 1. Mildly progressive findings. 2. No canal stenosis. 3. Multilevel uncovertebral joint hypertrophy and facet hypertrophy. 4. Multilevel foraminal narrowing as described above. Findings include moderate to severe right foraminal narrowing at C4-C5 and severe right foraminal narrowing at C5-C6. Dictated by: Nader Mohan M.D. on 01/20/2024 at 8:40 Approved by: Nader Mohan M.D. on 01/20/2024 at 8:49
== END ==
PROVIDERS: PCP Family Medicine; Referring Provider Physical Medicine & Rehabilitation; Visit Provider Physical Medicine & Rehabilitation
DX: M50.121 Cervical disc disorder at C4-C5 level with radiculopathy (principal); M47.22 Other spondylosis with radiculopathy, cervical region; M40.204 Unspecified kyphosis, thoracic region
CPT/HCPCS: 72141; 72146

== ENCOUNTER → 2024-02-05 13:54 | Outpatient (CLI) | payer MEDICARE, SELFPAY ==
--- NOTE | 2024-02-05 14:18 | DI.MRI.S_ITS ---
PROCEDURE: MR LUMBAR SPINE WO CON INDICATIONS: Spinal stenosis, lumbar region TECHNIQUE: Noncontrast sagittal T1 spin echo and T2 fast echo, sagittal STIR, and T2 fast spin echo through the lumbar spine. In cases with scoliosis, additional coronal T2 fast spin echo may be performed. COMPARISON: [facility], MR, MR LUMBAR SPINE WO CON, 04/24/2019, 13:08. FINDINGS: Image quality: Excellent. Alignment and Curvature: There is normal bony alignment. Bone Marrow: Marrow is of normal overall signal. No acute vertebral body compression fractures. Spinal Cord: Conus medullaris terminates at the L2 level. Visualized cord demonstrates normal signal and size. Paraspinous Soft Tissues: No paravertebral masses. T12-L1: Normal appearance. L1-L2: Mild disc desiccation. Trace facet effusions. L2-L3: Broad-based disc bulge. Mild ligamentum flavum hypertrophy. Mild facet hypertrophy. L3-L4: Disc desiccation, broad-based disc bulge, mild facet hypertrophy and ligamentum flavum hypertrophy. L4-L5: Mild disc desiccation. Broad-based disc bulge, facet hypertrophy and ligamentum flavum hypertrophy. Trace facet effusions. L5-S1: Mild disc desiccation, diffuse disc bulge, ligamentum flavum and facet hypertrophy. Mild bilateral neural foraminal narrowing. IMPRESSION: Multilevel degenerative disc disease and facet arthrosis, not significantly changed since 2019. Of note: No significant spinal canal narrowing. Up to mild neural foraminal narrowing at L5-S1. Dictated by: Antoni Fletcher M.D. on 02/06/2024 at 11:09 Approved by: Antoni Fletcher M.D. on 02/06/2024 at 11:12
== END ==
LOC: MRI 13:54
PROVIDERS: PCP Family Medicine; Referring Provider Physical Medicine & Rehabilitation; Visit Provider Physical Medicine & Rehabilitation
DX: M48.062 Spinal stenosis, lumbar region with neurogenic claudication (principal); M48.07 Spinal stenosis, lumbosacral region; M51.36 Other intervertebral disc degeneration, lumbar region; M51.37 Other intervertebral disc degeneration, lumbosacral region; M47.816 Spondylosis without myelopathy or radiculopathy, lumbar region; M47.817 Spondylosis without myelopathy or radiculopathy, lumbosacral region
CPT/HCPCS: 72148

== ENCOUNTER → 2024-02-23 07:43 | Outpatient (CLI) | payer MEDICARE, SELFPAY ==
--- NOTE | 2024-02-23 07:44 | DI.US.S_ITS ---
PROCEDURE: US ARTERIAL DUPLEX LE BI INDICATIONS: IDIOPATHIC PERIPHERAL NEUROPATHY TECHNIQUE: Color and pulse Doppler interrogation was performed of both lower extremity arterial systems, with image documentation. COMPARISON: None. FINDINGS: Right lower extremity: Common femoral artery: 93 cm/sec, with biphasic flow. Deep femoral artery: 80 cm/sec, with biphasic flow. Proximal superficial femoral artery: 131 cm/sec, with biphasic flow. Mid superficial femoral artery: 89 cm/sec, with biphasic flow. Distal superficial femoral artery: 133 cm/sec, with biphasic flow. Popliteal artery: 110 cm/sec, with biphasic flow. Posterior tibial artery: 58 cm/sec, with biphasic flow. Anterior tibial artery/dorsalis pedis: 63 cm/sec, with biphasic flow. Bazan-scale imaging description: No focal hemodynamically significant stenosis. Left lower extremity: Common femoral artery: 79 cm/sec, with biphasic flow. Deep femoral artery: 83 cm/sec, with biphasic flow. Proximal superficial femoral artery: 102 cm/sec, with biphasic flow. Mid superficial femoral artery: 100 cm/sec, with biphasic flow. Distal superficial femoral artery: 93 cm/sec, with biphasic flow. Popliteal artery: 81 cm/sec, with biphasic flow. Posterior tibial artery: 67 cm/sec, with biphasic flow. Anterior tibial artery/dorsalis pedis: 83 cm/sec, with biphasic flow. Bazan-scale imaging description: No focal hemodynamically significant stenosis. IMPRESSION: No focal hemodynamically significant stenosis of the bilateral lower extremity arteries. Biphasic waveforms are present throughout. Dictated by: Judith Cobian M.D. on 02/23/2024 at 10:21 Approved by: Judith Cobian M.D. on 02/23/2024 at 10:23
== END ==
PROVIDERS: PCP Family Medicine; Referring Provider Physical Medicine & Rehabilitation; Visit Provider Physical Medicine & Rehabilitation
DX: G60.9 Hereditary and idiopathic neuropathy, unspecified (principal)
CPT/HCPCS: 93925

== ENCOUNTER → 2024-04-13 07:28 | Outpatient (CLI) | payer MEDICARE, SELFPAY ==
[2024-04-16 11:17] LABS: Cholesterol, Total 106 mg/dL (100-199); HDL-Cholesterol 43 mg/dL (>39); Historical Reading Comment: (.); LDL Particle 479 nmol/L (<1000); LDL Size 20.2 nm (>20.5); LDL-Cholsterol 49 mg/dL (0-99); LP-IR Score 47 (<=45); Small LDL- Particle 217 nmol/L (<=527); Triglycerides 65 mg/dL (0-149)
== END ==
PROVIDERS: PCP Family Medicine; Referring Provider Family Medicine; Visit Provider Family Medicine
DX: E78.00 Pure hypercholesterolemia, unspecified (principal)
CPT/HCPCS: 36415; 80061; 83704

== ENCOUNTER 2024-06-13 20:36 | Emergency (ER) | payer MEDICARE, SELFPAY ==
[2024-06-13 21:14] VITALS: BP 135/65; PULSE 68; RESP 14; TEMP 37.4; O2SAT 98; BMI 22.2
[2024-06-13 22:26] LABS: COVID19 - ADMIT (NP swab/PCR) Negative (Negative)
--- NOTE | 2024-06-13 23:39 | ED_ITS ---
HPI - Recheck/Abnormal Lab/Rx General Chief Complaint: Recheck/Abnormal Lab/Rx Stated Complaint: wants covid check Time Seen by Provider: 06/13/24 23:37 Source: patient Mode of arrival: Ambulatory Limitations: no limitations History of Present Illness HPI narrative: 63-year-old female history of dyslipidemia who presents with complaint of fevers, chills, generalized myalgias starting in the last 24 hours. Patient states no headaches, no neck pain, no chest pain or shortness of breath no nausea or vomiting. No abdominal back or flank pain. No diarrhea or constipation, denies any urinary symptoms. No rash or skin changes. Patient did a home COVID test which was negative. She has traveled recently. States home medication is statin. No known drug allergies. Former smoker, occasional alcohol, no recreational drugs. Related Data Home Medications Medication Instructions Recorded Confirmed melatonin 3 mg tablet 3 mg PO BEDTIME PRN Insomnia 11/24/21 04/18/24 coQ10 (ubiquinol) 200 mg capsule 200 mg PO DAILY 12/15/23 04/18/24 cholecalciferol (vitamin D3) 50 100 mcg PO DAILY 01/11/24 04/18/24 mcg (2,000 unit) capsule Previous Rx's Medication Instructions Recorded atorvastatin 20 mg tablet 20 mg PO DAILY #90 tabs 04/18/24 Allergies Allergy/AdvReac Type Severity Reaction Status Date / Time No Known Drug Allergies Allergy Verified 04/18/24 15:01 Review of Systems Review of Systems ROS Unobtainable: All systems reviewed & are unremarkable except as noted in HPI and below Patient History Medical History JENNA (generalized anxiety disorder) Family history of hemochromatosis Cervical cancer, FIGO stage IB1 Needle stick injury (06/29/13) Spondylosis of lumbar spine Spondylosis of cervical spine Somatic dysfunction of cervical region Multiple neurological symptoms Former smoker Impaired vision History of headache Constipation Arthritis Hypertension Numbness and tingling Postmenopausal bleeding Cervical stenosis of spine Thyroid dysfunction Paresthesias Hypothyroidism Psoriasis Fibromyalgia Breast implant status PTSD (post-traumatic stress disorder) Pruritic condition Atrophic vaginitis (10/09/14) Menopause present (10/09/14) Depression (10/09/14) Ruptured tympanic membrane Surgical History History of hysterectomy for cancer (~07/2019) History of colonoscopy Family History Mother Tachycardia DVT (deep venous thrombosis) Varicose veins Osteoarthritis Social History marital status: household members: spouse lives independently: Yes Smoking Status: Former smoker alcohol intake: current Smoking Status: Former smoker alcohol intake frequency: a few times a month Substance Use Type: does not use Exam Narrative Exam Narrative: GEN: well nourished, well appearing female, alert and oriented x [default value], patient appears to be in mild distress. Patient appears to have the chills. HEENT: Atraumatic, pupils are equal round reactive to light, extraocular movements are intact, nares are clear, TMs are clear with no fluid, there is no conjunctival pallor. Throat is clear without any exudates, erythema, tonsillar enlargement or uvular deviation HEART: Regular rate and rhythm without murmur, clicks, rubs. LUNGS:Lungs clear to auscultation, no wheezes, rales, crackles, chest moves symm etrically, no tachypnea accessory muscle use ABD:bowel sounds normal, soft, non-tender, no guarding, rebound, rigidity, no masses noted, no hepatosplenomegaly :No CVA tenderness MSCL: Non-tender, no muscle atrophy, muscles strength 5/5 upper and lower extremities, full range of motion, normal gait NEURO:CN 2-12 intact, sensation normal. SKIN: Rash, erythema or other skin changes. Initial Vital Signs Initial Vital Signs: Vital Signs Temperature 99.3 F 06/13/24 21:14 Pulse Rate 68 06/13/24 21:14 Respiratory Rate 14 06/13/24 21:14 Blood Pressure 135/65 06/13/24 21:14 Pulse Oximetry 98 06/13/24 21:14 Oxygen Delivery Method Room Air 06/13/24 21:14 Course Orders Ordered: ED Orders 06/13/24 21:21 COVID19 - ADMIT ([employer] swab/PCR) Stat 06/14/24 01:00 Respiratory Panel (Film Array) Stat Vital Signs Vital signs: Vital Signs - 8 hr 06/13/24 21:14 06/14/24 01:12 Temperature 99.3 F 96.8 F L Pulse Rate 68 80 Respiratory Rate 14 18 Blood Pressure 135/65 128/74 Pulse Oximetry 98 98 Oxygen Delivery Method Room Air Room Air MDM - Recheck/Abnormal Lab/Rx Lab Data Labs: Lab Results 06/13/24 06/14/24 Range/Units 21:21 01:00 Chlamy pneumoniae PCR Not detected (Not Detect) Adenovirus (PCR) Not detected (Not Detect) B.parapertussis DNA PCR Not detected (Not Detecte) Coronavirus OC43 (PCR) Not detected (Not Detect) Coronavirus HKU1 (PCR) Not detected (Not Detect) Coronavirus 229E (PCR) Not detected (Not Detect) SARS-CoV-2 (PCR) Negative Not detected (Negative) Coronavirus NL63 (PCR) Not detected (Not Detect) Human Metapneumovir PCR Not detected (Not Detect) Influenza Type A (PCR) Not detected (Not Detect) Influenza Type B (PCR) Not detected (Not Detect) M. pneumoniae (PCR) Not detected (Not Detect) Parainfluenza 1 (PCR) Not detected (Not Detect) Parainfluenza 2 (PCR) Not detected (Not Detect) Parainfluenza 3 (PCR) Not detected (Not Detect) Parainfluenza 4 (PCR) Not detected (Not Detect) RSV (PCR) Not detected (Not Detect) Entero/Rhino (PCR) Not detected (Not Detect) Urine Dip Bedside Urine Glucose Negative Bedside Urine Bilirubin - Negative Bedside Urine Ketone - Negative Urine Specific [employer] [place] 1.010 Bedside Urine Occult Blood - Negative Bedside Urine pH 6.0 Bedside Urine Protein - Negative Bedside Urine Urobilinogen - Negative Bedside Urine Nitrite - Negative Bedside Urine Leukocytes - Negative Esterase [facility] Narrative Medical decision making narrative: Covid swab is negative. Patient symptoms started in the last 24 hours so could be falsely negative. Patient would like respiratory panel for influenza additional viral illnesses discussed could be possibly negative. She did not have any urinary symptoms but gait point of care urine which was negative. Discussed with patient watchful waiting, she would like to return home discussed she can call to follow up for results in the morning. Respiratory panel is negative. Discharge Plan Departure Patient Disposition: Home Clinical Impression: Fever Activity Restrictions/Additional Instructions: Your initial COVID was negative, respiratory panel is pending. You can call develop results. Continue with Tylenol/ibuprofen as needed for fevers. If you have any lightheadedness or passing out, new chest pain or shortness of breath, persistent vomiting, new abdominal back or flank pain, black or bloody stools or other new or concerning changes please return. Prescriptions: No Action cholecalciferol (vitamin D3) 50 mcg (2,000 unit) capsule 100 mcg PO DAILY atorvastatin 20 mg tablet 20 mg PO DAILY Qty: 90 1RF coQ10 (ubiquinol) 200 mg Capsule 200 mg PO DAILY melatonin 3 mg Tablet 3 mg PO BEDTIME PRN (Reason: Insomnia) Referrals: Shelia Beasley DO [Primary Care Provider] - Stand Alone Forms: Patient Portal/API
[2024-06-14 01:12] VITALS: BP 128/74; PULSE 80; RESP 18; TEMP 36; O2SAT 98
[2024-06-14 02:03] LABS: Adenovirus Not Detected (Not Detect); B. parapertussis Not Detected (Not Detecte); Bordetella pertussis Not Detected (Not Detect); Chlamydophila pneumoniae Not Detected (Not Detect); Coronavirus 229E Not Detected (Not Detect); Coronavirus HKU1 Not Detected (Not Detect); Coronavirus NL 63 Not Detected (Not Detect); Coronavirus OC43 Not Detected (Not Detect); Human Metapneumovirus Not Detected (Not Detect); Human Rhinovirus/Enterovirus Not Detected (Not Detect); Influenza A Not Detected (Not Detect); Influenza B Not Detected (Not Detect); Mycoplasma pneumoniae Not Detected (Not Detect); Parainfluenza Virus 1 Not Detected (Not Detect); Parainfluenza Virus 2 Not Detected (Not Detect); Parainfluenza Virus 3 Not Detected (Not Detect); Parainfluenza Virus 4 Not Detected (Not Detect); Respiratory Syncytial Virus Not Detected (Not Detect); SARS- CoV-2 Not Detected (Not Detecte)
== END 2024-06-14 01:13 | disposition home or self-care (01) ==
PROVIDERS: Emergency Provider Emergency Medicine; PCP Family Medicine
DX: R50.9 Fever, unspecified (principal); Z11.52 Encounter for screening for COVID-19
CPT/HCPCS: 81003; 87633; 87635; 99282

== ENCOUNTER 2024-06-17 15:16 | Emergency (ER) | payer MEDICARE, SELFPAY ==
[2024-06-17] VITALS (15 sets, daily range): BP systolic 137–185; BP diastolic 70–86; PULSE 76–90; RESP 14–30; TEMP 39.5–39.9; O2SAT 95–97; BMI 22.2
--- NOTE | 2024-06-17 15:49 | PC.NURSE ---
has chronic neck pain but now has sharp pain up neck with neck pain and headache and light makes headache worse.
--- NOTE | 2024-06-17 15:52 | DI.RAD.S_ITS ---
PROCEDURE: XR CHEST 1V INDICATIONS: suspected sepsis TECHNIQUE: One view of the chest was acquired. COMPARISON: [facility], CR, XR CHEST 1V, 12/15/2023, 11:55. FINDINGS: Surgical changes and devices: None. Lungs and pleura: Left-sided pulmonary infiltrate Mediastinum: Mediastinal contours appear normal. Heart size is normal. Bones and chest wall: No suspicious bony lesions. Overlying soft tissues appear unremarkable. IMPRESSION: Left-sided pulmonary infiltrate consistent with pneumonia Approved by: Dustin Conklin M.D. on 06/17/2024 at 15:52
[2024-06-17] MEDS: ACETAMINOPHEN 325 MG TABLET 975 MG PO (16:09)
[2024-06-17] MEDS: SODIUM CHLORIDE 0.9% 1,000 ML 1000 ML IV (16:12)
[2024-06-17 16:21] LABS: INR 1.2 (0.9-1.3); Prothrombin Time 13.2 SECONDS (9.4-12.5)
[2024-06-17 16:24] LABS: PTT Partial Thromboplastin Tim 34 SECONDS (25.1-36.5)
[2024-06-17 16:26] LABS: Add Manual Diff / Slide Review NO; Alanine Aminotransferase 174 IU/L (<35); Albumin 4.3 g/dL (3.5-5.0); Albumin Globulin Ratio 1.4 (1.0-2.8); Alkaline Phosphatase 135 U/L (38-126); Aspartate Aminotransferase 124 IU/L (14-36); BUN Creatinine Ratio 22.8 (6-22); Basophils Absolute Auto 0 /uL (0-100); Basophils Percent Auto 0.2 % (0-2); Bilirubin Total 0.8 mg/dL (0.2-1.3); Blood Urea Nitrogen 13 mg/dL (7-17); Calcium 9.3 mg/dL (8.4-10.2); Carbon Dioxide 20 mmol/L (22-32); Chloride 102 mmol/L (98-107); Eosinophils Absolute Auto 100 /uL (0-450); Eosinophils Percent Auto 0.7 % (2-4); Estimated Glomerular Filt Rate > 60 mL/min (>60); Globulin 3.1 g/dL (1.7-4.1); Glucose 102 mg/dL (80-110); HEMOLYSIS < 15 (0-50); Hematocrit 37.6 % (36-46); Hemoglobin 12.7 g/dL (12.0-16.0); Lipase 49 U/L (23-300); Lymphocytes Absolute Auto 600 /uL (1100-4500); Lymphocytes Percent Auto 4.6 % (25-40); Mean Corpuscular HGB Conc 33.9 % (30-36); Mean Corpuscular Hemoglobin 29.6 PG (26-34); Mean Corpuscular Volume 87.5 fL (80-100); Monocytes Absolute Auto 600 /uL (0-900); Neutrophils Absolute Auto 11100 /uL (1500-7000); Neutrophils Percent Auto 89.5 % (50-75); Platelet Count 350 X10^3/uL (150-400); Potassium 3.9 mmol/L (3.4-5.1); Red Cell Distribution Width 13.8 % (11.6-14.8); Sodium 135 mmol/L (137-145); Total Protein 7.4 g/dL (6.3-8.2); White Blood Cell Count 12.4 X10^3/uL (4.5-11.0)
--- NOTE | 2024-06-17 16:32 | EKG_ITS ---
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
--- NOTE | 2024-06-17 16:52 | DI.CT.S_ITS ---
PROCEDURE: CT CHEST ABD PEL W CON INDICATIONS: fever, pneumonia, high lfts. h/o ca TECHNIQUE: After the administration of intravenous contrast, 5 mm thick sections acquired from the lung apices to the symphysis. 5 mm coronal and sagittal reformats were performed, with additional 7 mm MIP reformats through the lungs. For radiation dose reduction, the following was used: automated exposure control, adjustment of mA and/or kV according to patient size. COMPARISON: None. FINDINGS: Chest: Cardiovascular: Heart size is normal. No evidence of pulmonary embolism, aortic aneurysm or dissection. Dense coronary artery vascular calcification Lungs and pleural spaces: Left upper lobe dense peripheral pulmonary infiltrate extends into the lingular segments, consistent with pneumonia. No parapneumonic infiltrate present. Right lung and pleural space clear. Lymph nodes: Mediastinal reactive appearing adenopathy present particularly in the aortopulmonary window Mediastinum: Unremarkable. No hiatal hernia. Thyroid within normal limits. Chest Wall and Bones: Unremarkable. No acute fracture. Abdomen and Pelvis: Liver: Normal in size and attenuation. No contour deformity present. Biliary system: No calcified cholelithiasis or pericholecystic inflammation. No intra or extrahepatic bile duct dilatation. Pancreas: Unremarkable without mass or inflammation evident. Spleen: Normal in size and density. Adrenals: Normal morphology and density. Reproductive system: Unremarkable as visualized. Urinary system: Normal renal size and attenuation. No renal calculi, hydronephrosis, or solid mass present. Urinary bladder unremarkable. Gastrointestinal system: The bowel is unremarkable with no evidence of bowel obstruction or inflammation. The stomach appears unremarkable. Appendix: No findings to suggest acute appendicitis. Lymph nodes: No mesenteric or retroperitoneal adenopathy. Peritoneal spaces: No free air. No free fluid. Vasculature: The IVC, aorta and iliac vasculature are unremarkable. Abdominal wall: Abdominal wall intact without evidence of ventral or inguinal hernias. Musculoskeletal: Normal bone mineralization. No acute fractures. IMPRESSION: Left upper lobe pneumonia Approved by: Dustin Conklin M.D. on 06/17/2024 at 17:32
--- NOTE | 2024-06-17 16:59 | ED_ITS ---
HPI - Fever General Chief Complaint: Fever Stated Complaint: Fever, Weakness, Aches Time Seen by Provider: 06/17/24 16:13 Source: patient Mode of arrival: Ambulatory History of Present Illness HPI Narrative: 63-year-old female with 3 days duration dry cough, muscle aches, feeling feverish, was seen here , recalls swab was negative for COVID, can not recall any more specific diagnosis, was discharged home. Still feeling feverish, some chills. Denies pain to chest abdomen and pelvis. Denies flank pain. Denies pain on urination. She also denies headache, neck pain, photophobia. Related Data Home Medications Medication Instructions Recorded Confirmed melatonin 3 mg tablet 3 mg PO BEDTIME PRN Insomnia 11/24/21 04/18/24 coQ10 (ubiquinol) 200 mg capsule 200 mg PO DAILY 12/15/23 04/18/24 cholecalciferol (vitamin D3) 50 100 mcg PO DAILY 01/11/24 04/18/24 mcg (2,000 unit) capsule Previous Rx's Medication Instructions Recorded atorvastatin 20 mg tablet 20 mg PO DAILY #90 tabs 04/18/24 amoxicillin 500 mg capsule 1,000 mg (2 x 500 mg) PO TID 10 06/17/24 days #60 caps doxycycline hyclate 100 mg capsule 100 mg PO BID #20 caps 06/17/24 prednisone 20 mg tablet 40 mg (2 x 20 mg) PO DAILY 5 days 06/17/24 #10 tabs Allergies Allergy/AdvReac Type Severity Reaction Status Date / Time No Known Drug Allergies Allergy Verified 06/17/24 15:55 Review of Systems Review of Systems Narrative: see HPI Patient History Medical History JENNA (generalized anxiety disorder) Family history of hemochromatosis Cervical cancer, FIGO stage IB1 Needle stick injury (06/29/13) Spondylosis of lumbar spine Spondylosis of cervical spine Somatic dysfunction of cervical region Multiple neurological symptoms Former smoker Impaired vision History of headache Constipation Arthritis Hypertension Numbness and tingling Postmenopausal bleeding Cervical stenosis of spine Thyroid dysfunction Paresthesias Hypothyroidism Psoriasis Fibromyalgia Breast implant status PTSD (post-traumatic stress disorder) Pruritic condition Atrophic vaginitis (10/09/14) Menopause present (10/09/14) Depression (10/09/14) Ruptured tympanic membrane Surgical History History of hysterectomy for cancer (~07/2019) History of colonoscopy Family History Mother Tachycardia DVT (deep venous thrombosis) Varicose veins Osteoarthritis Social History marital status: household members: spouse lives independently: Yes Smoking Status: Former smoker alcohol intake: current Smoking Status: Former smoker alcohol intake frequency: a few times a month Substance Use Type: does not use Exam Narrative Exam Narrative: GENERAL: Well-developed patient, in mild distress. HEAD: Atraumatic. Normocephalic. EYES: Pupils equal round and reactive. Extraocular motions intact. No scleral icterus. No injection or drainage. ENT: Nose without bleeding, purulent drainage. Throat without erythema, tonsillar hypertrophy or exudate. Airway patent. NECK: Trachea midline. Non tender CARDIOVASCULAR: Regular rate and rhythm without murmurs, gallops, or rubs. RESPIRATORY: Crackles mid lower left lung, none obvious on the right side, no wheezes, no retractions, speaks in full sentences. GASTROINTESTINAL: Abdomen soft, non-tender, nondistended. EXTREMITIES: No edema or joint tenderness. BACK: Nontender without deformity or crepitance. No flank tenderness. NEURO: AOx3. Grossly nonfocal SKIN: No rash or erythema of visible areas Initial Vital Signs Initial Vital Signs: Vital Signs Temperature 103.8 F H 06/17/24 15:38 Pulse Rate 89 06/17/24 15:38 Respiratory Rate 14 06/17/24 15:38 Blood Pressure 152/77 H 06/17/24 15:38 Pulse Oximetry 96 06/17/24 15:38 Oxygen Delivery Method Room Air 06/17/24 15:38 Course Orders Ordered: ED Orders 06/17/24 15:52 XR chest 1V Stat EKG-12 Lead Stat RT Consult Eval and Treat NOW 06/17/24 16:00 Complete Blood Count AUTO DIFF Stat Comprehensive Metabolic Panel Stat Lactate (Lactic Acid) Stat Lipase Stat PTT Partial Thromboplastin [place] Stat Procalcitonin Stat Prothrombin Time INR Stat 06/17/24 16:05 Respiratory Panel (Film Array) Stat 06/17/24 16:15 Blood Culture Stat 06/17/24 16:52 CT chest abd pel w con Stat 06/17/24 18:06 Urinalysis and Microscopic Stat Discontinued Medications Acetaminophen (Acetaminophen 325 Mg Tablet) 975 mg PO NOW ONE Stop: 06/17/24 15:49 Last Admin: 06/17/24 16:09 Dose: 975 mg Documented By: CALVIN Dexamethasone (Dexamethasone 10 Mg/Ml Vial) 10 mg IV NOW ONE Stop: 06/17/24 18:37 Last Admin: 06/17/24 18:45 Dose: 10 mg Documented By: CALVIN Diphenhydramine HCl (Diphenhydramine 50 Mg/Ml Vial) 50 mg IV NOW ONE Stop: 06/17/24 18:36 Last Admin: 06/17/24 18:46 Dose: 50 mg Documented By: CALVIN Doxycycline Hyclate (Doxycycline Hyclate 100 Mg Tablet) 100 mg PO NOW ONE Stop: 06/17/24 18:36 Last Admin: 06/17/24 18:45 Dose: 100 mg Documented By: CALVIN Sodium Chloride (Normal Saline 0.9%) 1,000 mls @ 1,000 mls/hr IV BOLUS ONE Stop: 06/17/24 16:51 Last Infusion: 06/17/24 18:00 Dose: Infused Documented By: Admin: 06/17/24 16:12 Dose: 1,000 mls/hr Documented By: CALVIN Azithromycin 500 mg/ Dextrose 250 mls @ 250 mls/hr IV NOW ONE Stop: 06/17/24 16:54 Last Infusion: 06/17/24 18:38 Dose: Infused Documented By: Admin: 06/17/24 18:15 Dose: 250 mls/hr Documented By: CALVIN Ceftriaxone Sodium 1,000 mg/ (Sodium Chloride) 100 mls @ 200 mls/hr IV NOW ONE Stop: 06/17/24 16:54 Last Infusion: 06/17/24 18:05 Dose: Infused Documented By: Admin: 06/17/24 17:21 Dose: 200 mls/hr Documented By: CALVIN Ondansetron HCl (Ondansetron 4 Mg/2 Ml Inj) 4 mg IV NOW PRN PRN Reason: Nausea And Vomiting Ondansetron HCl (Ondansetron 4 Mg Odt) 4 mg SL NOW PRN PRN Reason: Nausea And Vomiting Vital Signs Vital signs: Vital Signs - 8 hr 06/17/24 15:38 06/17/24 16:09 06/17/24 16:09 Temperature 103.8 F H 103.1 F H Pulse Rate 89 88 Respiratory Rate 14 Blood Pressure 152/77 H Pulse Oximetry 96 96 Oxygen Delivery Method Room Air 06/17/24 16:17 06/17/24 16:17 06/17/24 16:30 Temperature Pulse Rate 90 80 Respiratory Rate 22 22 Blood Pressure 142/70 H Pulse Oximetry 97 96 Oxygen Delivery Method 06/17/24 16:30 06/17/24 16:45 06/17/24 16:45 Temperature Pulse Rate 86 Respiratory Rate 22 Blood Pressure 146/70 H 148/73 H Pulse Oximetry 95 Oxygen Delivery Method 06/17/24 17:12 06/17/24 17:30 06/17/24 17:44 Temperature Pulse Rate 81 81 Respiratory Rate 22 18 Blood Pressure 156/72 H Pulse Oximetry 95 95 Oxygen Delivery Method 06/17/24 17:44 06/17/24 17:45 06/17/24 17:45 Temperature Pulse Rate 80 80 Respiratory Rate 16 20 Blood Pressure 149/72 H Pulse Oximetry 95 95 Oxygen Delivery Method 06/17/24 18:00 06/17/24 18:00 06/17/24 18:30 Temperature Pulse Rate 78 82 Respiratory Rate 20 24 Blood Pressure 137/73 Pulse Oximetry 95 97 Oxygen Delivery Method 06/17/24 18:33 06/17/24 18:33 06/17/24 18:45 Temperature Pulse Rate 80 Respiratory Rate 30 H Blood Pressure 155/70 H 153/76 H Pulse Oximetry 97 Oxygen Delivery Method 06/17/24 18:45 06/17/24 19:00 06/17/24 19:00 Temperature Pulse Rate 79 76 Respiratory Rate 24 26 H Blood Pressure 185/86 H Pulse Oximetry 97 96 Oxygen Delivery Method 06/17/24 19:09 06/17/24 19:09 Temperature Pulse Rate 77 Respiratory Rate 22 Blood Pressure 158/72 H Pulse Oximetry 96 Oxygen Delivery Method MDM - Fever Lab Data Attestation: I reviewed the patient's lab results. 06/17/24 16:00 06/17/24 16:00 Labs: Lab Results 06/17/24 06/17/24 06/17/24 Range/Units 16:00 16:05 18:06 WBC 12.4 H (4.5-11.0) X10^3/uL RBC 4.30 (4.0-5.2) X10^6/uL Hgb 12.7 (12.0-16.0) g/dL Hct 37.6 (36-46) % MCV 87.5 (80-100) fL MCH 29.6 (26-34) PG MCHC 33.9 (30-36) % RDW 13.8 (11.6-14.8) % Plt Count 350 (150-400) X10^3/uL Neut % (Auto) 89.5 H (50-75) % Lymph % (Auto) 4.6 L (25-40) % [place]cd[place] % (Auto) 5.0 (3-14) % Eos % (Auto) 0.7 L (2-4) % Baso % (Auto) 0.2 (0-2) % Neut # (Auto) 83794 H (8819-0170) /uL Lymph # (Auto) 600 L (4680-6946) /uL [place]cdowell # (Auto) 600 (0-900) /uL Eos # (Auto) 100 (0-450) /uL Baso # (Auto) 0 (0-100) /uL PT 13.2 H (9.4-12.5) SECONDS INR 1.2 (0.9-1.3) APTT 34 (25.1-36.5) SECONDS Sodium 135 L (137-145) mmol/L Potassium 3.9 (3.4-5.1) mmol/L Chloride 102 (98-107) mmol/L Carbon Dioxide 20 L (22-32) mmol/L BUN 13 (7-17) mg/dL Creatinine 0.57 (0.52-1.04) mg/dL Estimated GFR > 60 (>60) mL/min BUN/Creatinine Ratio 22.8 H (6-22) Glucose 102 (80-110) mg/dL Lactate 1.0 (0.7-2.1) mmol/L Calcium 9.3 (8.4-10.2) mg/dL Total Bilirubin 0.8 (0.2-1.3) mg/dL AST 124 H (14-36) IU/L ALT 174 H (<35) IU/L Alkaline Phosphatase 135 H (38-126) U/L Total Protein 7.4 (6.3-8.2) g/dL Albumin 4.3 (3.5-5.0) g/dL Globulin 3.1 (1.7-4.1) g/dL Albumin/Globulin Ratio 1.4 (1.0-2.8) Lipase 49 (23-300) U/L Procalcitonin 0.220 (<0.5) ng/mL Urine Color Yellow Urine Appearance Clear Urine pH 6.0 (4.5-8.0) Ur Specific [place] <=1.005 (1.000-1.035) Urine Protein Negative (Negative) Urine Glucose (UA) Negative (Negative) g/dL Urine Ketones Trace H (NEGATIVE) Urine Occult Blood Trace-intact (Negative) Urine Nitrate Negative (Negative) Urine Bilirubin Negative (NEGATIVE) Urine Urobilinogen 1.0 (0.2) E.U./dL Ur Leukocyte Esterase Negative (NEGATIVE) Urine RBC 1-5/hpf (0-5/HPF) Urine WBC None seen (0-5/HPF) Ur Squamous Epith Cells 0-1 /hpf (0-5/HPF) Calcium Oxalate Crystal Occasional H Amorphous Sediment 2+ Urine Bacteria None seen (None) Ur Culture Indicated? Cult not indicated Vol Urine Centrifuged 10ml (spun) Chlamy pneumoniae PCR Not detected (Not Detect) Adenovirus (PCR) Not detected (Not Detect) B.parapertussis DNA PCR Not detected (Not Detecte) Coronavirus OC43 (PCR) Not detected (Not Detect) Coronavirus HKU1 (PCR) Not detected (Not Detect) Coronavirus 229E (PCR) Not detected (Not Detect) SARS-CoV-2 (PCR) Not detected (Not Detecte) Coronavirus NL63 (PCR) Not detected (Not Detect) Human Metapneumovir PCR Not detected (Not Detect) Influenza Type A (PCR) Not detected (Not Detect) Influenza Type B (PCR) Not detected (Not Detect) M. pneumoniae (PCR) Not detected (Not Detect) Parainfluenza 1 (PCR) Not detected (Not Detect) Parainfluenza 2 (PCR) Not detected (Not Detect) Parainfluenza 3 (PCR) Not detected (Not Detect) Parainfluenza 4 (PCR) Not detected (Not Detect) RSV (PCR) Not detected (Not Detect) Entero/Rhino (PCR) Not detected (Not Detect) Urine Dip Bedside Urine Glucose Negative Bedside Urine Bilirubin - Negative Bedside Urine Ketone +/- 5 Urine Specific [place] 1.000 Bedside Urine Occult Blood - Negative Bedside Urine pH 6.0 Bedside Urine Protein - Negative Bedside Urine Urobilinogen - Negative Bedside Urine Nitrite - Negative Bedside Urine Leukocytes - Negative Esterase Imaging Data CT chest abdomen pelvis: Radiologist's Impression: [address] [id number] [address] Scan Report Signed Patient: Farnaz Sidhu MR#: [id number] : 1960 Acct:[id number] Age/Sex: 63 / F Date of Service: 06/17/24 Loc: ED Accession Number: [id number] Procedure: CT chest abd pel w con Ordering Provider: Dread Mazariegos MD PROCEDURE: CT CHEST ABD PEL W CON INDICATIONS: fever, pneumonia, high lfts. h/o ca TECHNIQUE: After the administration of intravenous contrast, 5 mm thick sections acquired from the lung apices to the symphysis. 5 mm coronal and sagittal reformats were performed, with additional 7 mm MIP reformats through the lungs. For radiation dose reduction, the following was used: automated exposure control, adjustment of mA and/or kV according to patient size. COMPARISON: None. FINDINGS: Chest: Cardiovascular: Heart size is normal. No evidence of pulmonary embolism, aortic aneurysm or dissection. Dense coronary artery vascular calcification Lungs and pleural spaces: Left upper lobe dense peripheral pulmonary infiltrate extends into the lingular segments, consistent with pneumonia. No parapneumonic infiltrate present. Right lung and pleural space clear. Lymph nodes: Mediastinal reactive appearing adenopathy present particularly in the aortopulmonary window Mediastinum: Unremarkable. No hiatal hernia. Thyroid within normal limits. Chest Wall and Bones: Unremarkable. No acute fracture. Abdomen and Pelvis: Liver: Normal in size and attenuation. No contour deformity present. Biliary system: No calcified cholelithiasis or pericholecystic inflammation. No intra or extrahepatic bile duct dilatation. Pancreas: Unremarkable without mass or inflammation evident. Spleen: Normal in size and density. Adrenals: Normal morphology and density. Reproductive system: Unremarkable as visualized. Urinary system: Normal renal size and attenuation. No renal calculi, hydronephrosis, or solid mass present. Urinary bladder unremarkable. Gastrointestinal system: The bowel is unremarkable with no evidence of bowel obstruction or inflammation. The stomach appears unremarkable. Appendix: No findings to suggest acute appendicitis. Lymph nodes: No mesenteric or retroperitoneal adenopathy. Peritoneal spaces: No free air. No free fluid. Vasculature: The IVC, aorta and iliac vasculature are unremarkable. Abdominal wall: Abdominal wall intact without evidence of ventral or inguinal hernias. Musculoskeletal: Normal bone mineralization. No acute fractures. IMPRESSION: Left upper lobe pneumonia Approved by: Dustin Conklin M.D. on 06/17/2024 at 17:32 Chest x-ray: Radiologist's Impression: [address] [address] XRay Report Signed Patient: Farnaz Sidhu MR#: [id number] : 1960 Acct:[id number] Age/Sex: 63 / F Date of Service: 06/17/24 Loc: ED Accession Number: [id number] Procedure: XR chest 1V Ordering Provider: Dread Mazariegos MD PROCEDURE: XR CHEST 1V INDICATIONS: suspected sepsis TECHNIQUE: One view of the chest was acquired. COMPARISON: [facility], , XR CHEST 1V, 12/15/2023, 11:55. FINDINGS: Surgical changes and devices: None. Lungs and pleura: Left-sided pulmonary infiltrate Mediastinum: Mediastinal contours appear normal. Heart size is normal. Bones and chest wall: No suspicious bony lesions. Overlying soft tissues appear unremarkable. IMPRESSION: Left-sided pulmonary infiltrate consistent with pneumonia Approved by: Dustin Conklin M.D. on 06/17/2024 at 15:52 ECG Data Attestation: I personally reviewed and interpreted this ECG as follows: Interpretation: Normal sinus rhythm with rate of 84, no obvious ST segment elevation or depression changes. AL 136, QRS 74, QTC 437. [facility] Narrative Medical decision making narrative: 63-year-old female with 3 days duration fever, dry cough, recent COVID swab negative, still feeling feverish, on triage 103 temperature noted, some crackles left-sided, screening chest x-ray suspicious for left infiltrate versus mass and postobstructive changes, LFTs mildly elevated compared to previous comparisons. History of remote cervical cancer status post 2018 radical hysterectomy, not known to have any metastases. Blood cultures requested, IV ceftriaxone and azithromycin for community-acquired pneumonia for now. We will CT abdomen and pelvis to evaluate liver functions, also further delineate anatomy with chest CT component. Patient agreeable. Currently no oxygen requirement but there is fever. Blood cultures were requested. Repeat COVID swab was sent from triage, results pending at this time. Urinalysis pending at this time. Urine dip negative. IV ceftriaxone and azithromycin initiated for possible pneumonia coverage. Await CT readings. Radiology over-read chest x-ray favors pneumonia changes, abnormal LFTs noted. CT reports pending CT chest abdomen and pelvis, showed confirmation of left upper lobe pneumonia changes, no mention of any mass with postobstructive changes. No acute abdominal findings. Patient tolerated ceftriaxone, while I azithromycin was being infused she had some redness and rash. Infusion was stopped. P.o. doxycycline given in its place. IV Decadron, IV Benadryl. Prescriptions for further antibiotics use as an outpatient to use amoxicillin and doxycycline, prednisone for the next few days and [id number] Benadryl for allergic reaction in case of any prolonged problems. Recheck lungs and symptoms with regular provider advised with PCP in 2 days. Return precautions discussed Critical Care Time Critical Care Time Critical Care Time: Yes Total Critical Care Time: 31 Attestation: The high probability of a clinically significant, sudden or life threatening deterioration of the [cardiopulmonary, gastrointestinal, hepatobiliary, genitourinary] system(s) required my full and direct attention, intervention and personal management. The aggregate critical care time was [31] minutes. This time is in addition to time spent performing reported procedures but includes the following: [x] Data Review and interpretation [x] Patient assessment and monitoring of vital signs [x] Documentation [x] Medication orders and management Discharge Plan Departure Patient Disposition: Home Clinical Impression: Pneumonia, Allergy or intolerance to drug Activity Restrictions/Additional Instructions: Fevers with recent dry cough, respiratory swab recent visit negative, repeat swab negative again today. On your lung exam today there is slight crackles on the left side. Chest x-ray showed upper middle left-sided lung mass versus pneumonia. Slight abnormal liver functions noted as well. CT scan chest abdomen and pelvis was therefore done. IV antibiotics initiated for possible pneumonia coverage with ceftriaxone and azithromycin. You had itchiness rash with the azithromycin infusion, we will change azithromycin to doxycycline, take for 10 day course. For allergic reaction consider use of prednisone steroid for a few more days, and use [id number] Benadryl to her few more days. Avoid azithromycin and erythromycin antibiotics, as they would likely have similar reaction, loose this as a drug allergy in the future when asked. CT scanning showed no mass but confirmed left-sided pneumonia changes, no acute intra-abdominal findings. No oxygen requirement, heart rate good, no respiratory distress, pain seems well controlled. We will treat for community- acquired pneumonia as an outpatient for now. Further antibiotics as an outpatient for now. Prescriptions: New amoxicillin 500 mg capsule 1,000 mg PO TID 10 Days Qty: 60 0RF prednisone 20 mg tablet 40 mg PO DAILY 5 Days Qty: 10 0RF doxycycline hyclate 100 mg capsule 100 mg PO BID Qty: 20 0RF No Action cholecalciferol (vitamin D3) 50 mcg (2,000 unit) capsule 100 mcg PO DAILY atorvastatin 20 mg tablet 20 mg PO DAILY Qty: 90 1RF coQ10 (ubiquinol) 200 mg Capsule 200 mg PO DAILY melatonin 3 mg Tablet 3 mg PO BEDTIME PRN (Reason: Insomnia) Referrals: Shelia Beasley DO [Primary Care Provider] - Stand Alone Forms: Patient Portal/API
[2024-06-17 17:02] LABS: Adenovirus Not Detected (Not Detect); B. parapertussis Not Detected (Not Detecte); Bordetella pertussis Not Detected (Not Detect); Chlamydophila pneumoniae Not Detected (Not Detect); Coronavirus 229E Not Detected (Not Detect); Coronavirus HKU1 Not Detected (Not Detect); Coronavirus NL 63 Not Detected (Not Detect); Coronavirus OC43 Not Detected (Not Detect); Human Metapneumovirus Not Detected (Not Detect); Human Rhinovirus/Enterovirus Not Detected (Not Detect); Influenza A Not Detected (Not Detect); Influenza B Not Detected (Not Detect); Mycoplasma pneumoniae Not Detected (Not Detect); Parainfluenza Virus 1 Not Detected (Not Detect); Parainfluenza Virus 2 Not Detected (Not Detect); Parainfluenza Virus 3 Not Detected (Not Detect); Parainfluenza Virus 4 Not Detected (Not Detect); Respiratory Syncytial Virus Not Detected (Not Detect); SARS- CoV-2 Not Detected (Not Detecte)
[2024-06-17] MEDS: cefTRIAXone 1,000 MG in SODIUM CHLORIDE 0.9% 100 ML 200 MG IV (17:21)
[2024-06-17] MEDS: AZITHROMYCIN 500 MG in DEXTROSE 5% IN WATER 250 ML 250 MG IV (18:15)
[2024-06-17 18:35] LABS: Appearance Urine UA CLEAR; Bilirubin Urine UA NEGATIVE (NEGATIVE); Color Urine UA YELLOW; Glucose Urine UA NEGATIVE (Negative); Ketones Urine UA TRACE (NEGATIVE); Leukocyte Esterase Urine UA NEGATIVE (NEGATIVE); Nitrite Urine UA NEGATIVE (Negative); Occult Blood Urine UA TRACE-INTACT (Negative); Protein Urine UA NEGATIVE (Negative); Specific Gravity Urine UA <=1.005 (1.000-1.035)
--- NOTE | 2024-06-17 18:39 | PC.NURSE ---
Addendum entered by Anirudh Dow R.N. 06/17/24 18:59: Pt not displaying signs of distress. Pt denies SOB or throat closing. Vitals reassessed. Original Note: Pt calling out for itching in her R arm. Pt has a red rash around and near the IV site. Azithromycin stopped. grain roaster notified, DAYSI Mazariegos notified. Orders placed for IV benadryl.
[2024-06-17 18:44] LABS: Bacteria Urine None Seen; RBC Urine 1-5/HPF (0-5/HPF); Squamous Epithelial Cell Urine 0-1 /HPF (0-5/HPF); Urine Volume 10mL (spun); WBC Urine None Seen (0-5/HPF)
[2024-06-17 18:45] LABS: Amorphous Sediment Urine 2+; Calcium Oxalate Crystals Urine Occasional; Culture Indicated Urine Cult Not Indicated
[2024-06-17] MEDS: DOXYCYCLINE HYCLATE 100 MG TABLET PO (18:45)
[2024-06-17] MEDS: DEXAMETHASONE 10 MG/ML VIAL IV (18:45)
[2024-06-17] MEDS: diphenhydrAMINE 50 MG/ML VIAL IV (18:46)
--- NOTE | 2024-06-17 19:21 | PC.NURSE ---
Pt not noting any signs of distress at discharge. pt vitals appear consistent with the duration of her stay. No throat closing, no SOB, no nausea or vomiting.
== END 2024-06-17 19:25 | disposition home or self-care (01) ==
PROVIDERS: Emergency Provider Emergency Medicine; PCP Family Medicine
DX: J18.9 Pneumonia, unspecified organism (principal); R21 Rash and other nonspecific skin eruption; T36.3X5A Adverse effect of macrolides, initial encounter; Z11.52 Encounter for screening for COVID-19
CPT/HCPCS: 36415; 71045; 71260; 74177; 80053; 81001; 81003; 83605; 83690; 84145; 85025; 85610; 85730; 87040; 87633; 93005; 96365; 96367; 96375; 99284; J0696; J1100; J1200; Q9967

== ENCOUNTER → 2024-07-09 14:25 | Outpatient (CLI) | payer MEDICARE, SELFPAY ==
[2024-07-09 15:18] LABS: Add Manual Diff / Slide Review NO; Basophils Absolute Auto 100 /uL (0-100); Eosinophils Absolute Auto 300 /uL (0-450); Eosinophils Percent Auto 4.7 % (2-4); Hematocrit 38.5 % (36-46); Hemoglobin 12.8 g/dL (12.0-16.0); Lymphocytes Absolute Auto 1700 /uL (1100-4500); Mean Corpuscular HGB Conc 33.2 % (30-36); Mean Corpuscular Hemoglobin 29.7 PG (26-34); Mean Corpuscular Volume 89.3 fL (80-100); Monocytes Absolute Auto 400 /uL (0-900); Monocytes Percent Auto 7.2 % (3-14); Neutrophils Absolute Auto 3000 /uL (1500-7000); Neutrophils Percent Auto 55.1 % (50-75); Platelet Count 330 X10^3/uL (150-400); Red Blood Cell Count 4.32 X10^6/uL (4.0-5.2); Red Cell Distribution Width 14.4 % (11.6-14.8); White Blood Cell Count 5.4 X10^3/uL (4.5-11.0)
[2024-07-09 15:57] LABS: Follicle Stimulating Hormone 41.8 mIU/mL
== END ==
LOC: LAB 14:26
PROVIDERS: PCP Family Medicine; Referring Provider Family Medicine; Visit Provider Family Medicine
DX: G62.9 Polyneuropathy, unspecified (principal); E03.9 Hypothyroidism, unspecified; Z87.01 Personal history of pneumonia (recurrent); R61 Generalized hyperhidrosis; R23.2 Flushing; M79.10 Myalgia, unspecified site; H93.19 Tinnitus, unspecified ear; Z78.0 Asymptomatic menopausal state
CPT/HCPCS: 36415; 82550; 82552; 82672; 83001; 84144; 84999; 85025

== ENCOUNTER → 2024-07-30 14:45 | Outpatient (CLI) | payer MEDICARE, SELFPAY ==
--- NOTE | 2024-07-30 14:47 | DI.RAD.S_ITS ---
PROCEDURE: XR CHEST 2V INDICATIONS: 6 weeks pneumonia check for resolution TECHNIQUE: 2 views of the chest were acquired. COMPARISON: [facility], CR, XR CHEST 1V, 06/17/2024, 15:55. FINDINGS: Heart, mediastinum and pulmonary vascular: Heart is normal in size and configuration. Mediastinum is unremarkable. Pulmonary vascular is normal. Lungs: Clear Pleural spaces: Normal-no effusions or pneumothorax. Bones and soft tissues: Minimal chronic wedging of the thoracic vertebral bodies noted IMPRESSION: No cardiopulmonary disease. Dictated by: Hang Santiago M.D. on 07/31/2024 at 10:05 Approved by: Hang Santiago M.D. on 07/31/2024 at 10:06
== END ==
LOC: RAD 14:46
PROVIDERS: PCP Family Medicine; Referring Provider Family Medicine; Visit Provider Family Medicine
DX: Z87.01 Personal history of pneumonia (recurrent) (principal); Z09 Encounter for follow-up examination after completed treatment for conditions other than malignant neoplasm
CPT/HCPCS: 71046

== ENCOUNTER → 2024-11-30 08:58 | Outpatient (CLI) | payer MEDICARE, SELFPAY ==
[2024-11-30 10:01] LABS: Alanine Aminotransferase 32 IU/L (<35); Albumin 4.7 g/dL (3.5-5.0); Alkaline Phosphatase 56 U/L (38-126); Aspartate Aminotransferase 35 IU/L (14-36); BUN Creatinine Ratio 23.1 (6-22); Bilirubin Total 0.5 mg/dL (0.2-1.3); Blood Urea Nitrogen 15 mg/dL (7-17); Carbon Dioxide 28 mmol/L (22-32); Chloride 102 mmol/L (98-107); Estimated Glomerular Filt Rate > 60 mL/min (>60); Globulin 2.3 g/dL (1.7-4.1); Glucose 95 mg/dL (80-110); HEMOLYSIS < 15 (0-50); Potassium 4.2 mmol/L (3.4-5.1); Sodium 138 mmol/L (137-145)
[2024-11-30 10:33] LABS: TSH w/ Reflex to FT4 2.72 uIU/mL (0.47-4.68)
[2024-11-30 10:35] LABS: Ferritin 116 ng/mL (11-264)
[2024-12-01 08:10] LABS: CRP, High Sensitivity 1.12 mg/L (0.00-3.00)
[2024-12-02 10:13] LABS: Dehydroepiandrosterone Sulfate 39.9 ug/dL (20.4-186.6)
== END ==
LOC: LAB 08:59
PROVIDERS: PCP Family Medicine; Referring Provider Family Medicine; Visit Provider Family Medicine
DX: R74.8 Abnormal levels of other serum enzymes (principal); R53.83 Other fatigue; Z12.11 Encounter for screening for malignant neoplasm of colon; Z91.89 Other specified personal risk factors, not elsewhere classified; E78.00 Pure hypercholesterolemia, unspecified; E03.8 Other specified hypothyroidism; R93.1 Abnormal findings on diagnostic imaging of heart and coronary circulation
CPT/HCPCS: 36415; 80053; 80061; 82274; 82627; 82728; 83704; 84443; 86140

== ENCOUNTER → 2024-12-25 13:04 | Outpatient (CLI) | payer MEDICARE, SELFPAY ==
--- NOTE | 2024-12-25 13:05 | DI.MG.S_ITS ---
BILATERAL DIGITAL SCREENING MAMMOGRAM 3D/2D WITH CAD: 12/25/2024 CLINICAL: Routine screening. Family history of breast cancer. Comparison is made to exams dated: 10/06/2023 mammogram, 10/05/2022 mammogram, and 05/08/2021 mammogram - [facility]. The breasts are heterogeneously dense, which may obscure small masses (category c / 51-75% glandular tissue). Current study was also evaluated with a Computer Aided Detection (CAD) system. There are benign post operative findings in both breasts. No significant masses, calcifications, or other findings are seen in either breast. There has been no significant interval change. IMPRESSION: BENIGN There is no mammographic evidence of malignancy. A 1 year screening mammogram is recommended. Based on the Tyrer Cuzick model (a risk assessment model) the patient's lifetime risk is 19.7% and her 10 year risk is 10.2%. According to the ACR, ACS, and NCCN guidelines, an annual breast MRI exam along with mammogram is recommended if the patient's lifetime risk is 20% or greater. This exam was interpreted at Station ID: [id number]. NOTE: For mammograms, a report in lay terms will be sent to the patient. Approximately 15% of breast malignancies will not be visualized mammographically. In the management of a palpable breast mass, a negative mammogram must not discourage biopsy of a clinically suspicious lesion. Electronically Signed By: Paolo motley/ricco:12/25/2024 17:21:14 letter sent: Normal Exam ACR BI-RADS Category 2: Benign
== END ==
PROVIDERS: PCP Family Medicine; Referring Provider Family Medicine; Visit Provider Family Medicine
DX: Z12.31 Encounter for screening mammogram for malignant neoplasm of breast (principal); Z80.3 Family history of malignant neoplasm of breast; R92.333 Mammographic heterogeneous density, bilateral breasts
CPT/HCPCS: 77063; 77067

== ENCOUNTER → 2025-02-07 08:32 | Outpatient (CLI) | payer MEDICARE, SELFPAY ==
--- NOTE | 2025-02-07 08:33 | DI.US.S_ITS ---
PROCEDURE: US CAROTID DOPPLER BI INDICATIONS: HIGH CORONARY ARTERY CALCIUM SCORE. ALSO EVALUATE CIMT. TECHNIQUE: Color and pulse Doppler interrogation was performed of both carotid systems, with image documentation and velocity measurements. COMPARISON: None. FINDINGS: Stenosis calculations are based on SRU (Society of Radiologists in Ultrasound) criteria. Right side: Brachial blood pressure: 150/76 mm Hg. Common carotid artery peak systolic velocity: 56 cm/sec. Internal carotid artery peak systolic velocity: 136 cm/sec. Internal carotid artery end diastolic velocity: 28 cm/sec. External carotid artery peak systolic velocity: 104 cm/sec. ICA/CCA peak systolic ratio: 2.4 . Bazan scale imaging description: Mild atherosclerotic plaques Percent internal carotid artery stenosis: 50-69% . Vertebral artery: Flow direction is antegrade. Left side: Brachial blood pressure: 163/75 mm Hg. Common carotid artery peak systolic velocity: 67 cm/sec. Internal carotid artery peak systolic velocity: 97 cm/sec. Internal carotid artery end diastolic velocity: 32 cm/sec. External carotid artery peak systolic velocity: 78 cm/sec. ICA/CCA peak systolic ratio: 1.4 . Bazan scale imaging description: Trace atherosclerotic plaques Percent internal carotid artery stenosis: Less than 50% stenosis . Vertebral artery: Flow direction is antegrade. Right common carotid artery: Proximal 0.6 mm, mid 0.8 mm, distal 0.6 mm Left common carotid artery: Proximal 0.7 mm, mid 0.7 mm, and distal 0.8 mm. IMPRESSION: 1. In the right carotid artery, there is 50-69% stenosis based on peak systolic velocity criteria. 2. In the left carotid artery, there is less than 50% stenosis based on peak systolic velocity criteria. 3. Antegrade vertebral arteries. Dictated by: Otf Baltazar M.D. on 02/07/2025 at 14:05 Approved by: Otf Baltazar M.D. on 02/07/2025 at 14:14
== END ==
LOC: US 08:33
PROVIDERS: PCP Family Medicine; Referring Provider Family Medicine; Visit Provider Family Medicine
DX: I65.23 Occlusion and stenosis of bilateral carotid arteries (principal); R93.1 Abnormal findings on diagnostic imaging of heart and coronary circulation
CPT/HCPCS: 93880

== ENCOUNTER → 2025-02-20 08:21 | Outpatient (CLI) | payer MEDICARE, SELFPAY ==
[2025-02-20 10:08] LABS: Alanine Aminotransferase 32 IU/L (<35); Albumin 4.7 g/dL (3.5-5.0); Alkaline Phosphatase 67 U/L (38-126); Aspartate Aminotransferase 37 IU/L (14-36); BUN Creatinine Ratio 19.7 (6-22); Bilirubin Total 0.6 mg/dL (0.2-1.3); Blood Urea Nitrogen 12 mg/dL (7-17); Calcium 9.8 mg/dL (8.4-10.2); Carbon Dioxide 28 mmol/L (22-32); Chloride 102 mmol/L (98-107); Estimated Glomerular Filt Rate > 60 mL/min (>60); Globulin 2.3 g/dL (1.7-4.1); Glucose 93 mg/dL (70-99); HEMOLYSIS < 15 (0-50); Potassium 4.3 mmol/L (3.4-5.1); Sodium 137 mmol/L (137-145)
[2025-02-20 10:19] LABS: Vitamin D 25 Hydroxy (D3) 79.5 ng/mL (30.0-100.0)
[2025-02-20 10:35] LABS: TSH w/ Reflex to FT4 1.36 uIU/mL (0.47-4.68)
== END ==
PROVIDERS: PCP Family Medicine; Referring Provider Family Medicine; Visit Provider Family Medicine
DX: I10 Essential (primary) hypertension (principal); N95.2 Postmenopausal atrophic vaginitis; R93.1 Abnormal findings on diagnostic imaging of heart and coronary circulation; E78.00 Pure hypercholesterolemia, unspecified; E03.8 Other specified hypothyroidism
CPT/HCPCS: 36415; 80053; 80061; 82306; 82627; 83704; 84443

== ENCOUNTER → 2025-07-30 15:59 | Outpatient (CLI) | payer MEDICARE, SELFPAY ==
--- NOTE | 2025-07-30 16:01 | DI.RAD.S_ITS ---
PROCEDURE: XR SACRUM COCCYX MIN 2V INDICATIONS: left sided acute on chronic tailbone pain, r/o bony lesion TECHNIQUE: 3 views of the sacrum and coccyx acquired. COMPARISON: None. FINDINGS: Bones: No fractures or dislocations. No suspicious bony lesions. Soft tissues: Visualized bowel gas pattern is normal. No suspicious soft tissue densities. IMPRESSION: Moderate fecal debris in the right colon. No fracture Approved by: Dustin Conklin M.D. on 07/31/2025 at 18:56
== END ==
PROVIDERS: PCP Family Medicine; Referring Provider Family Medicine; Visit Provider Family Medicine
DX: M53.3 Sacrococcygeal disorders, not elsewhere classified (principal); G89.29 Other chronic pain
CPT/HCPCS: 72220